=== PATIENT | male | born 1970 | race African-American/Black ===

== ENCOUNTER 2017-06-12 14:02 | Inpatient (IN) | payer OTHER ==
[2017-06-12 14:26] VITALS: BMI 24.4
--- NOTE | 2017-06-12 14:49 | PDOC ---
Attending Attestation - HPI HPI: 06/12/17 16:55 Pt is a 46 yo M with no PMHx who presents to the ED with chest pain and dark colored urine for the past 4 days. Patient reports R sided chest pain worse with expectoration associated with fever/chills (T max 101 at home), night sweats, decreased appetite and nausea. Patient reports productive cough (clear phlegm). Patient presents to the ED for further evaluation. Social Hx: Current everyday smoker PCP: None - Physicial Exam PE: 06/12/17 16:55 GENERAL: The patient is awake, alert, and fully oriented, Nontoxic - in no acute distress. HEAD: Normocephalic, atraumatic. EYES: Extraocular movements intact, sclera anicteric, conjunctiva clear. ENT: Normal voice, moist mucous membranes. NECK: Normal range of motion, supple without lymphadenopathy, JVD, or masses. LUNGS: Breath sounds equal, clear to auscultation bilaterally. No wheezes, no crackles, no rales. HEART: Regular rate and rhythm, normal S1 and S2 without murmur, rub or gallop. ABDOMEN: +RUQ discomfort. Soft, nontender, normoactive bowel sounds. No guarding , no rebound. No masses. EXTREMITIES: Normal range of motion, no edema. No clubbing or cyanosis. No cords , erythema, or tenderness. NEUROLOGICAL: Fully Oriented, Alert, Normal Mood/Affect, Motor Strength 5/5. No facial asymmetry, Normal speech. SKIN: Warm, Dry, normal turgor, no rashes or lesions noted. - Medical Decision Making 06/12/17 16:55 Documentation prepared by Mary Clarke, acting as emergency medicine medical director for Wendy Santos MD <Mary Clarke - Last Filed: 06/12/17 16:55> - Resident Resident Name: Benito Ortiz - Medical Decision Making 06/12/17 19:59 I, Dr. Wendy Santos, attest that the scribes documentation that appears above has been prepared under my direction and personally reviewed by me. I confirmed that the note above accurately reflects all work, treatment, procedures, and medical decision-making performed by me. 06/12/17 20:00 Pt's labs and xray reviewed and noted, PT with elevated wbc of 20,000 with no significant shift and cxr concerning for left hilar mass,ct of chest ordered to confirm mass noted on cxr. Ct read as 4 cm perihilar upper lobe mass contiguous with left hilum highly suspicious for malignancy. Pt was informed of ct results and current plan is to admit to hospital for further evaluation and work up of lung mass. <Wendy Santos - Last Filed: 06/12/17 20:03>
[2017-06-12] MEDS ORDERED: SODIUM CHLORIDE 0.9% 1000 ML INFUS.BAG IV STA (14:50)
[2017-06-12 15:10] LABS: MEAN CELL VOLUME 85.1 fl (80-96)
[2017-06-12 15:13] LABS: HEMATOCRIT 36.6 % (35.4-49); HEMOGLOBIN 12.4 GM/dL (11.7-16.9); MEAN PLT VOLUME 8.9 fl (7.5-11.1); PLATELET COUNT 309 K/MM3 (134-434); RBC 4.29 M/mm3 (4.00-5.60); RDW 13.8 % (11.9-15.9); WHITE BLOOD COUNT 20.6 K/mm3 (4.0-10.0)
--- NOTE | 2017-06-12 15:13 | PDOC ---
History of Present Illness - General Chief Complaint: Chest Pain Stated Complaint: CHEST PAIN Time Seen by Provider: 06/12/17 14:39 History Source: Patient Exam Limitations: No Limitations - History of Present Illness Initial Comments: 06/12/17 14:53 Patient is a 46M with no significant medical history here today complaining of chest pain, cough, rigors and chills. The cough started two weeks ago. The chest pain started 3-4 days ago after multiple episodes of coughing and is worse with palpation. Patient describes chills 2 nights ago that were bad enough to cause him to shake uncontrollably. Patient states that he's finally coming in today because his urine turned dark orange. Patient is an active smoker, denies alcohol and other illicits. His father had "heart surgery" at 47. Denies sick contacts, did not get flu shot this year. Past History - Past Medical History Allergies/Adverse Reactions: Allergies Allergy/AdvReac Type Severity Reaction Status Date / Time pistachio nut Allergy Verified 06/12/17 14:26 Home Medications: Ambulatory Orders NK [No Known Home Medication] 06/12/17 - Suicide/Smoking/Psychosocial Hx Smoking History: Current every day smoker Have you smoked in the past 12 months: Yes Number of Cigarettes Smoked Daily: 10 Information on smoking cessation initiated: No Hx Alcohol Use: No Drug/Substance Use Hx: No Review of Systems - Review of Systems Comments:: 06/12/17 15:13 GENERAL/CONSTITUTIONAL: No fever or chills. No weakness. HEAD, EYES, EARS, NOSE AND THROAT: No change in vision. No sore throat. CARDIOVASCULAR: Positive for chest pain and shortness of breath RESPIRATORY: Positive for cough. Negative for hemoptysis. GASTROINTESTINAL: No nausea, vomiting, diarrhea or constipation. GENITOURINARY: No dysuria, frequency, or change in urination. MUSCULOSKELETAL: Positive for right sided muscle pains. No neck or back pain. SKIN: No rash NEUROLOGIC: No headache, vertigo, loss of consciousness, or change in strength/ sensation. HEMATOLOGIC/LYMPHATIC: No anemia, easy bleeding, or history of blood clots. ALLERGIC/IMMUNOLOGIC: No hives or skin allergy. *Physical Exam - Vital Signs Last Vital Signs Temp Pulse Resp BP Pulse Ox 99.0 F 108 H 16 126/84 99 06/12/17 14:23 06/12/17 14:23 06/12/17 14:23 06/12/17 14:23 06/12/17 14:23 - Physical Exam Comments: 06/12/17 15:14 GENERAL: Awake, alert, and fully oriented, warm to touch on abdomen, cold extremities HEAD: No signs of trauma, normocephalic, atraumatic EYES: PERRLA, EOMI, sclera anicteric, conjunctiva clear ENT: Auricles normal inspection, hearing grossly normal, nares patent, oropharynx clear without exudates. Dry mucosa NECK: Normal ROM, supple, no lymphadenopathy, JVD, or masses LUNGS: No distress, speaks full sentences, decreased breath sounds on right side HEART: Tachycardic, normal S1 and S2, no murmurs, rubs or gallops, peripheral pulses normal and equal bilaterally. ABDOMEN: Soft, nontender, normoactive bowel sounds. No guarding, no rebound. No masses EXTREMITIES: Normal inspection, Normal range of motion, no edema. No clubbing or cyanosis. NEUROLOGICAL: Cranial nerves II through XII grossly intact. Normal speech, no focal sensorimotor deficits SKIN: Warm, Dry, normal turgor, no rashes or lesions noted. ED Treatment Course - LABORATORY CBC & Chemistry Diagram: 06/12/17 15:00 06/12/17 15:00 - RADIOLOGY Radiology Studies Ordered: Category Date Time Status CHEST X-RAY PORTABLE* [RAD] Stat Radiology 06/12/17 14:50 Ordered Medical Decision Making - Medical Decision Making 06/12/17 15:17 Patient is 46M with no significant medical history here today complaining of cough, rigors, chest pain, dark urine. Vital signs notable for tachycardia. Patient warm to touch in abdomen, will get rectal temp. Believe patient may be septic. Will treat with fluids and tylenol. Will evaluate with septic work up. 06/12/17 17:15 Laboratory Tests 06/12/17 06/12/17 06/12/17 15:00 15:00 15:00 WBC 20.6 H Hgb 12.4 Hct 36.6 Plt Count 309 Neutrophils % (Manual) 74.7 INR 1.28 H Sodium 135 L Potassium 3.2 L Troponin I < 0.02 Urine Nitrite Ur Leukocyte Esterase Urine WBC (Auto) 06/12/17 15:43 WBC Hgb Hct Plt Count Neutrophils % (Manual) INR Sodium Potassium Troponin I Urine Nitrite Negative Ur Leukocyte Esterase Negative Urine WBC (Auto) 5 CBC shows leukocytosis with neutrophillic shift. INR slightly elevated. CMP shows mild hypokalemia. Troponin undetectqable. UA not positive for UTI. CXR concerning for pneumonia vs mass. 06/12/17 17:34 Flu negative. 06/12/17 18:37 EKG shows sinus tachycardia with rate of 103bpm. Right axis with LVH. Biphasic t waves in V3-V6. No st elevations/depressions. Normal QRS/DC/QTc intervals. 06/12/17 19:22 CT shows probable malignancy with surrounding pneumonitis. Will cover with ceftriaxone. Signed out to Dr Khalil. *DC/Admit/Observation/Transfer Diagnosis at time of Disposition: Lung cancer - Discharge Dispostion Condition at time of disposition: Stable - Referrals - Patient Instructions - Post Discharge Activity
[2017-06-12] MEDS ORDERED: ACETAMINOPHEN 1000 MG/100 ML VIAL (NON FORMULARY) IVPB ONE (15:19)
[2017-06-12] MEDS ORDERED: ACETAMINOPHEN INJECTION 100 ML IVPB ONE (15:50)
[2017-06-12 15:51] LABS: PLATELET ESTIMATE NORMAL
[2017-06-12 15:58] LABS: INR 1.28 (0.82-1.09); PROTHROMBIN TIME (PATIENT) 14.5 SEC (9.98-11.88)
[2017-06-12 16:01] LABS: ACTIVATED PTT 31.7 SECONDS (26.9-34.4); ALBUMIN 2.5 g/dl (3.4-5.0); ANION GAP 12 (8-16); BILIRUBIN,TOTAL 0.7 mg/dL (0.2-1.0); BLOOD UREA NITROGEN 12 mg/dL (7-18); CALCIUM 8.3 mg/dL (8.5-10.1); CHLORIDE 93 mmol/L (98-107); CO2 30 mmol/L (21-32); CREATININE 0.9 mg/dL (0.7-1.3); GLUCOSE,RANDOM 95 mg/dL (74-106); POTASSIUM 3.2 mmol/L (3.5-5.1); SGOT/AST 49 U/L (15-37); SODIUM 135 mmol/L (136-145); TOT PROT 6.6 g/dl (6.4-8.2)
[2017-06-12 16:10] LABS: ALK PHOS 176 U/L (45-117); SGPT/ALT 30 U/L (12-78)
[2017-06-12 16:11] LABS: URINE APPEARANCE CLEAR; URINE BLOOD NEGATIVE (NEGATIVE); URINE COLOR AMBER; URINE GLUCOSE (UA) NEGATIVE (NEGATIVE); URINE KETONE NEGATIVE (NEGATIVE); URINE LEUK ESTERASE NEGATIVE (NEGATIVE); URINE NITRITE NEGATIVE (NEGATIVE); URINE UROBILINOGEN 4.0 E.U/dl mg/dL (0.2-1.0)
[2017-06-12 16:12] LABS: URINE PROTEIN 1+ (NEGATIVE)
[2017-06-12 16:20] LABS: EPI CELLS RARE /HPF (FEW); URINE MUCUS RARE
[2017-06-12] MEDS ORDERED: POTASSIUM CHLORIDE ORAL LIQUID 20 MEQ/15 ML PO ONE (16:21)
[2017-06-12] MEDS ORDERED: POTASSIUM CHLORIDE ORAL LIQUID 20 MEQ/15 ML ONE (16:44)
[2017-06-12] MEDS ORDERED: CEFTRIAXONE 1 GM in DEXTROSE 5%-WATER - 50 ML IVPB ONE (19:24)
[2017-06-12] MEDS ORDERED: AZITHROMYCIN IVPB 500 MG in DEXTROSE 5%-WATER - 250 ML IVPB ONE (19:24)
[2017-06-12] MEDS ORDERED: CEFTRIAXONE 1 GM/50 ML BAG ONE (19:29)
[2017-06-12] MEDS ORDERED: AZITHROMYCIN IVPB 250 ML IVPB ONE (19:29)
[2017-06-13] MEDS ORDERED: ALBUTEROL SO4 0.083% IH SOL 2.5 MG/3 ML VIAL.NEB. NEB PRN (01:15)
--- NOTE | 2017-06-13 01:22 | PN ---
Teaching Attending Note Name of Resident: Stacia Bray ATTENDING PHYSICIAN STATEMENT I saw and evaluated the patient. I reviewed the resident's note and discussed the case with the resident. I agree with the resident's findings and plan as documented. SUBJECTIVE: This is a 46 year old man with no significant medical history who comes to the ED with right sided chest pain radiating to his back. He has had a dry cough for about 4 weeks. He thought he had a cold and took OTC cold medications without relief. He developed pain about 2 weeks ago. He has had nausea, loss of appetite, chills, and night sweats. He noted his urine has been dark x 2 days. His stools have been smaller than usual which he attributes to eating less. 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 He denies weight loss , abdominal pain, SOB, hemoptysis, jaundice. OBJECTIVE: Vital Signs Period Temp Pulse Resp BP Sys/Victoria Pulse Ox Last 24 Hr 98.8 F-99.0 F 104-108 16-16 126-132/84-86 97-99 HEART: S1S2, RRR LUNGS: Clear ABDOMEN: Soft, non-tender, non-distended, normal BS EXTREMITIES: No edema Laboratory Tests 06/12/17 06/12/17 06/12/17 15:00 15:00 15:00 WBC 20.6 H RBC 4.29 Hgb 12.4 Hct 36.6 MCV 85.1 MCH 29.0 MCHC 34.0 RDW 13.8 Plt Count 309 MPV 8.9 Neutrophils % No Result Required. Neutrophils % (Manual) 74.7 Band Neutrophils % 0.0 Lymphocytes % No Result Required. Lymphocytes % (Manual) 10.1 Monocytes % (Manual) 7 Eosinophils % (Manual) 0.0 Basophils % (Manual) 2.0 Myelocytes % (Man) 0 Promyelocytes % (Man) 0 Blast Cells % (Manual) 0 Nucleated RBC % 0 Metamyelocytes 0 Platelet Estimate Normal PT with INR 14.50 H INR 1.28 H PTT (Actin FS) 31.7 VBG pH Cancelled POC VBG pCO2 Cancelled POC VBG pO2 Cancelled Mixed VBG HCO3 Cancelled Sodium Potassium Chloride Carbon Dioxide Anion Gap BUN Creatinine Creat Clearance w eGFR Random Glucose Lactic Acid Calcium Total Bilirubin AST ALT Alkaline Phosphatase Troponin I Total Protein Albumin Urine Color Urine Appearance Urine pH Ur Specific [place] Urine Protein Urine Glucose (UA) Urine Ketones Urine Blood Urine Nitrite Urine Bilirubin Urine Urobilinogen Ur Leukocyte Esterase Urine WBC (Auto) Urine RBC (Auto) Ur Epithelial Cells Urine Mucus 06/12/17 06/12/17 06/12/17 15:00 15:00 15:43 WBC RBC Hgb Hct MCV MCH MCHC RDW Plt Count MPV Neutrophils % Neutrophils % (Manual) Band Neutrophils % Lymphocytes % Lymphocytes % (Manual) Monocytes % (Manual) Eosinophils % (Manual) Basophils % (Manual) Myelocytes % (Man) Promyelocytes % (Man) Blast Cells % (Manual) Nucleated RBC % Metamyelocytes Platelet Estimate PT with INR INR PTT (Actin FS) VBG pH POC VBG pCO2 POC VBG pO2 Mixed VBG HCO3 Sodium 135 L Potassium 3.2 L Chloride 93 L Carbon Dioxide 30 Anion Gap 12 BUN 12 Creatinine 0.9 Creat Clearance w eGFR > 60 Random Glucose 95 Lactic Acid 1.0 Calcium 8.3 L Total Bilirubin 0.7 AST 49 H ALT 30 Alkaline Phosphatase 176 H Troponin I < 0.02 Total Protein 6.6 Albumin 2.5 L Urine Color Kalani Urine Appearance Clear Urine pH 5.0 Ur Specific [place] 1.023 Urine Protein 1+ H Urine Glucose (UA) Negative Urine Ketones Negative Urine Blood Negative Urine Nitrite Negative Urine Bilirubin 2.0 Urine Urobilinogen 4.0 e.u/dl Ur Leukocyte Esterase Negative Urine WBC (Auto) 5 Urine RBC (Auto) 6 Ur Epithelial Cells Rare Urine Mucus Rare Home Medications Medication Instructions Recorded NK [No Known Home Medication] 06/12/17 ASSESSMENT AND PLAN: This is a 46 year old man with no significant medical history who presented to the ED with right sided chest pain radiating to his back. He was found to have WBC 20.6 and lung/liver/adrenal masses on CT. 1. Sepsis secondary to post-obstructive pneumonia - Start Unasyn 2. RO/hilar mass, LLL spiculated nodule, liver masses, right adrenal mass suspicious for metastatic cancer - IR for biopsy - Pulmonary consult 3. Hypoalbuminemia 4. Hyponatremia, mild - Possibly secondary to SIADH 5. Hypokalemia - Replete potassium
[2017-06-13] MEDS ORDERED: ONDANSETRON 4 MG/2 ML VIAL IVPUSH PRN (01:32)
--- NOTE | 2017-06-13 01:43 | HP ---
CHIEF COMPLAINT: chest pain PCP: HISTORY OF PRESENT ILLNESS: This is a 46 year old male with no known medical history, presents to the emergency room with sharp, intermittent, right shoulder/anterior chest pain that radiates to the back, for the past two weeks. Pain with palpation. No change with rest or exertion. NO jaw/numbness/tingling. Aleve and heating pad alleviate pain. Denies palpitations, shortness of breath, leg swelling. He also noticed his urine being "very dark", no hematuria, dysuria, flank pain, fever. He has been somewhat nauseous, poor appetite, with dry cough, and intermittent night sweats. With these additional symptoms, and the chest pain he decided to come to hospital to get evaluated. Patient denies FERRERA, blurry vision, abdominal pain, sputum production, hemoptysis, melena, node tenderness, recent travel, sick contacts. ER course was notable for: tachycardic; mild feverl leukocytosis. Chest CT showed obstructive pneumonia with lung mass. 4 cm perihilar RO mass cont with left hilum, suspicious for malignancy. 1.3 CM non calcified spiculated LL nodule susp. for malignancy. Extra hepatic metastisis. 4cm mass rigth adrenal. Recent Travel: no PAST MEDICAL HISTORY: nk PAST SURGICAL HISTORY: nk Social History: Had and 5mo daughter; father passed; brother of cancer a young age (unknown Ca); mother alive; family hc unknown; works as in construction; Smokin ppd since Alcohol:no Drugs: no Family History: Allergies pistachio nut Allergy (Verified 06/12/17 14:26) HOME MEDICATIONS: Home Medications Medication Instructions Recorded NK [No Known Home Medication] 06/12/17 REVIEW OF SYSTEMS as above PHYSICAL EXAMINATION Vital Signs - 24 hr 06/12/17 06/12/17 06/13/17 14:23 15:44 00:02 Temperature 99.0 F 98.8 F Pulse Rate 108 H Pulse Rate [ 104 H Left] Respiratory 16 16 Rate Blood Pressure 126/84 Blood Pressure 132/86 [Left Arm] O2 Sat by Pulse 99 97 98 Oximetry (%) GENERAL: Awake, alert, and fully oriented, in no acute distress. HEAD: Normal with no signs of trauma. EYES: Pupils equal, round and reactive to light, extraocular movements intact, sclera anicteric, conjunctiva clear. No lid lag. EARS, NOSE, THROAT: Ears normal, nares patent, oropharynx clear without exudates. Moist mucous membranes. NECK: Normal range of motion, supple without lymphadenopathy, JVD, or masses. LUNGS: Breath sounds equal, clear to auscultation bilaterally. No wheezes, and no crackles. No accessory muscle use. HEART: tachy and reg rhythm, normal S1 and S2 without murmur, rub or gallop. ABDOMEN: Soft, nontender, not distended, normoactive bowel sounds, no guarding, no rebound, no masses. No hepatomegaly or splenomegaly. MUSCULOSKELETAL: Normal range of motion at all joints. No bony deformities or tenderness. No CVA tenderness. UPPER EXTREMITIES: 2+ pulses, warm, well-perfused. No cyanosis. No clubbing. No peripheral edema. LOWER EXTREMITIES: 2+ pulses, warm, well-perfused. No calf tenderness. No peripheral edema. NEUROLOGICAL: Cranial nerves II-XII intact. Normal speech. Normal gait. muscle strength 5/5 deltoid, triceps, biceps, hand oil developer, wrist/hip/knee/ankle flexion and extention bilaterally; sensation in tact throughout; reflexes 2+; brachioradials; knee; ankle; PSYCHIATRIC: Cooperative. Good eye contact. Appropriate mood and affect. SKIN: Warm, dry, normal turgor, no rashes or lesions noted, normal capillary refill. looks like had cysts on back mid upper right; clean no puss drian; Laboratory Results - last 24 hr 06/12/17 06/12/17 06/12/17 15:00 15:00 15:00 WBC 20.6 H RBC 4.29 Hgb 12.4 Hct 36.6 MCV 85.1 MCH 29.0 MCHC 34.0 RDW 13.8 Plt Count 309 MPV 8.9 Neutrophils % No Result Required. Neutrophils % (Manual) 74.7 Band Neutrophils % 0.0 Lymphocytes % No Result Required. Lymphocytes % (Manual) 10.1 Monocytes % (Manual) 7 Eosinophils % (Manual) 0.0 Basophils % (Manual) 2.0 Myelocytes % (Man) 0 Promyelocytes % (Man) 0 Blast Cells % (Manual) 0 Nucleated RBC % 0 Metamyelocytes 0 Platelet Estimate Normal PT with INR 14.50 H INR 1.28 H PTT (Actin FS) 31.7 VBG pH Cancelled POC VBG pCO2 Cancelled POC VBG pO2 Cancelled Mixed VBG HCO3 Cancelled Sodium Potassium Chloride Carbon Dioxide Anion Gap BUN Creatinine Creat Clearance w eGFR Random Glucose Lactic Acid Calcium Total Bilirubin AST ALT Alkaline Phosphatase Troponin I Total Protein Albumin Urine Color Urine Appearance Urine pH Ur Specific [place] Urine Protein Urine Glucose (UA) Urine Ketones Urine Blood Urine Nitrite Urine Bilirubin Urine Urobilinogen Ur Leukocyte Esterase Urine WBC (Auto) Urine RBC (Auto) Ur Epithelial Cells Urine Mucus 06/12/17 06/12/17 06/12/17 15:00 15:00 15:43 WBC RBC Hgb Hct MCV MCH MCHC RDW Plt Count MPV Neutrophils % Neutrophils % (Manual) Band Neutrophils % Lymphocytes % Lymphocytes % (Manual) Monocytes % (Manual) Eosinophils % (Manual) Basophils % (Manual) Myelocytes % (Man) Promyelocytes % (Man) Blast Cells % (Manual) Nucleated RBC % Metamyelocytes Platelet Estimate PT with INR INR PTT (Actin FS) VBG pH POC VBG pCO2 POC VBG pO2 Mixed VBG HCO3 Sodium 135 L Potassium 3.2 L Chloride 93 L Carbon Dioxide 30 Anion Gap 12 BUN 12 Creatinine 0.9 Creat Clearance w eGFR > 60 Random Glucose 95 Lactic Acid 1.0 Calcium 8.3 L Total Bilirubin 0.7 AST 49 H ALT 30 Alkaline Phosphatase 176 H Troponin I < 0.02 Total Protein 6.6 Albumin 2.5 L Urine Color Kalani Urine Appearance Clear Urine pH 5.0 Ur Specific [place] 1.023 Urine Protein 1+ H Urine Glucose (UA) Negative Urine Ketones Negative Urine Blood Negative Urine Nitrite Negative Urine Bilirubin 2.0 Urine Urobilinogen 4.0 e.u/dl Ur Leukocyte Esterase Negative Urine WBC (Auto) 5 Urine RBC (Auto) 6 Ur Epithelial Cells Rare Urine Mucus Rare Chest CT: showed obstructive pneumonia with lung mass. 4 cm perihilar RO mass cont with left hilum, suspicious for malignancy. 1.3 CM non calcified spiculated LL nodule susp. for malignancy. Extra hepatic metastisis. 4cm mass rigth adrenal. ASSESSMENT/PLAN: This is a 46 year old male with no known medical history who presented with chest pain, generalized symptoms; found to have lung mass with obstructive pna, with imaging that indicated liver mets. #sepsis secondary to obstructive pneumonia; -IV unasyn -blood cx -cxr -CT as above #new lung mass with liver mets: -bone scan -CT guided lung biopsy -IR -pulm appreciated -brobchodilator prn -pain control -spirometer #nausea; -zofran IV -IVF if cannot tolerate po #hypokalemia: -replaced in ER; trend FEN: Fluids; 125mls ND: monitor for fluid overload; if patient eating and drinking, can d/c fluids; breath sound clear for now Diet: regular VTE: scds; start hep after procedure GI: protonix Case discussed with Dr. Galen [id number] Visit type - Emergency Visit Emergency Visit: Yes ED Registration Date: 06/12/17 Care time: The patient presented to the Emergency Department on the above date and was hospitalized for further evaluation of their emergent condition. - New Patient This patient is new to me today: Yes Date on this admission: 06/13/17 - Critical Care Critical Care patient: No Hospitalist Screening - Colonoscopy Questionnaire Colonoscopy Questionnaire: Colonoscopy Questionnaire - Patient: 50 - 75 years old and never had a screening colonoscopy: No History of colon or rectal polyps, or CA: Unknown History of IBD, Crohn's disease or UC: Unknown History of abdominal radiation therapy as a child: Unknown - Relative: 1 with colon or rectal CA, or polyps at age 60 or younger: Unknown Colon or rectal CA diagnosed at age 45 or younger: Unknown Multiple relatives with colon or rectal CA: Unknown - Outcome: Screening Result: Negative Screen
[2017-06-13] MEDS ORDERED: HEPARIN NA (PORCINE) 5,000 UNITS/ML 1ML VIAL SQ SCH (02:00)
[2017-06-13] MEDS: SODIUM CHLORIDE 1,000 ML IV SCH (02:08)
[2017-06-13] MEDS: oxyCODONE HCL 5 MG TABLET PO PRN ×5 (02:14→21:18)
[2017-06-13] MEDS: AMPICILLIN NA/SULBACTAM NA 3 GM in SODIUM CHLORIDE 100 ML IVPB SCH ×4 (03:39→21:18)
[2017-06-13] MEDS ORDERED: PT OWN MED DRAWER 7, Y5N ONE ×2 (08:41→21:04)
[2017-06-13] MEDS ORDERED: PNEUMOCOCCAL 23 VACCINE 0.5 ML VIAL IM ONE (09:45)
[2017-06-13] MEDS ORDERED: FLU VACCINE QUAD 60 MCG/0.5 ML (MDV 17-18) IM ONE (10:00)
[2017-06-13] MEDS ORDERED: PNEUMOC 13-VAL CONJ-DIP CRM/PF 0.5 ML DISP.SYRIN IM ONE (10:00)
--- NOTE | 2017-06-13 11:58 | PN ---
Progress Note (short form) - Note Progress Note: Subjective: no fever or chills. No abd pain , has Right upper chest wall pain. no cough , has sweats and feels hot . no diarrhea , but had diarrhea x 2 twice yesterday denies FERRERA , visual changes , nubness , weakness or tingling . denies back pain. Objective: Vital Signs: Last Vital Signs Temp Pulse Resp BP Pulse Ox 98.9 F 77 20 126/90 98 06/13/17 06:00 06/13/17 06:00 06/13/17 06:00 06/13/17 06:00 06/13/17 02:26 Laboratory Results - last 24 hr 06/12/17 06/12/17 06/12/17 15:00 15:00 15:00 WBC 20.6 H RBC 4.29 Hgb 12.4 Hct 36.6 MCV 85.1 MCH 29.0 MCHC 34.0 RDW 13.8 Plt Count 309 MPV 8.9 Neutrophils % No Result Required. Neutrophils % (Manual) 74.7 Band Neutrophils % 0.0 Lymphocytes % No Result Required. Lymphocytes % (Manual) 10.1 Monocytes % (Manual) 7 Eosinophils % (Manual) 0.0 Basophils % (Manual) 2.0 Myelocytes % (Man) 0 Promyelocytes % (Man) 0 Blast Cells % (Manual) 0 Nucleated RBC % 0 Metamyelocytes 0 Platelet Estimate Normal PT with INR 14.50 H INR 1.28 H PTT (Actin FS) 31.7 VBG pH Cancelled POC VBG pCO2 Cancelled POC VBG pO2 Cancelled Mixed VBG HCO3 Cancelled Sodium Potassium Chloride Carbon Dioxide Anion Gap BUN Creatinine Creat Clearance w eGFR Random Glucose Lactic Acid Calcium Total Bilirubin AST ALT Alkaline Phosphatase Troponin I Total Protein Albumin Urine Color Urine Appearance Urine pH Ur Specific [place] Urine Protein Urine Glucose (UA) Urine Ketones Urine Blood Urine Nitrite Urine Bilirubin Urine Urobilinogen Ur Leukocyte Esterase Urine WBC (Auto) Urine RBC (Auto) Ur Epithelial Cells Urine Mucus 06/12/17 06/12/17 06/12/17 15:00 15:00 15:43 WBC RBC Hgb Hct MCV MCH MCHC RDW Plt Count MPV Neutrophils % Neutrophils % (Manual) Band Neutrophils % Lymphocytes % Lymphocytes % (Manual) Monocytes % (Manual) Eosinophils % (Manual) Basophils % (Manual) Myelocytes % (Man) Promyelocytes % (Man) Blast Cells % (Manual) Nucleated RBC % Metamyelocytes Platelet Estimate PT with INR INR PTT (Actin FS) VBG pH POC VBG pCO2 POC VBG pO2 Mixed VBG HCO3 Sodium 135 L Potassium 3.2 L Chloride 93 L Carbon Dioxide 30 Anion Gap 12 BUN 12 Creatinine 0.9 Creat Clearance w eGFR > 60 Random Glucose 95 Lactic Acid 1.0 Calcium 8.3 L Total Bilirubin 0.7 AST 49 H ALT 30 Alkaline Phosphatase 176 H Troponin I < 0.02 Total Protein 6.6 Albumin 2.5 L Urine Color Kalani Urine Appearance Clear Urine pH 5.0 Ur Specific [place] 1.023 Urine Protein 1+ H Urine Glucose (UA) Negative Urine Ketones Negative Urine Blood Negative Urine Nitrite Negative Urine Bilirubin 2.0 Urine Urobilinogen 4.0 e.u/dl Ur Leukocyte Esterase Negative Urine WBC (Auto) 5 Urine RBC (Auto) 6 Ur Epithelial Cells Rare Urine Mucus Rare Physical Exam: NAD CV: RRR Lungs: CTAB ABd: soft, ND, TTP in RUQ. liver is percussed 3 cm below the costal margin. Ext: no edema lymphatic: 1.5 cm node in R axilla ,. None in L axilla Neuro : EOMI, round equal pupils reactive to light , tongue at mid line, sensatio in face NL. strength 5/5 in upper and lower ext proximally and distally. sensatio to light touch NL. reflexes : Knee jerk 2+ b/l , biceps 1+ b/ l Imaging: CT image reviewed. report pending . US report reviewed. Assessment/Plan: Unfortunate 46 y/o man with h/o nicotine dependence who presented with fever and R chest pain and was found to have PNA and possible metastatic cancer 1- PNA : likely post obstructive . - cont unasyn - follow blood cx - follow WBC 2- possible metastatic cancer , with likely lung origin given his h/o smoking. - lung, liver, adrenal involvement. and R axillary lymph node. - will wait for official read and see if ther is any involvement of ribs in R sided chest. - get full CT abd for full staging. NO neuro sx and has nl neuro exam, no need for head imaging . NO back pain. - might need bone scan - will d/w IR tomorrow for best site for Bx - consult Onc. - pt is aware of possible diagnosis 3- hypokalemia , hyponatremia . repeat labs pending 4- nicotine dependence . Nicotine patch DVT PX with lovenox. hold in AM for possible bx Visit type - Emergency Visit Emergency Visit: Yes ED Registration Date: 06/12/17 Care time: The patient presented to the Emergency Department on the above date and was hospitalized for further evaluation of their emergent condition. - New Patient This patient is new to me today: Yes Date on this admission: 06/13/17 - Critical Care Critical Care patient: No
[2017-06-13] MEDS ORDERED: ENOXAPARIN NA (PORCINE) 40 MG/0.4 ML DISP.SYRIN SQ ONE (12:04)
[2017-06-13 12:13] LABS: BASO % 0.8 % (0-2.0); EOS % 0.5 % (0-4.5); HEMATOCRIT 37.3 % (35.4-49); HEMOGLOBIN 12.6 GM/dL (11.7-16.9); LYMPH % 9.9 % (8-40); MCH 28.8 pg (25.7-33.7); MCHC 33.7 g/dl (32.0-35.9); MEAN CELL VOLUME 85.4 fl (80-96); MEAN PLT VOLUME 8.7 fl (7.5-11.1); MONO % 10.8 % (3.8-10.2); PLATELET COUNT 327 K/MM3 (134-434); RBC 4.37 M/mm3 (4.00-5.60); RDW 13.8 % (11.9-15.9); WHITE BLOOD COUNT 18.3 K/mm3 (4.0-10.0)
[2017-06-13 12:32] LABS: ANION GAP 7 (8-16); BLOOD UREA NITROGEN 8 mg/dL (7-18); CALCIUM 7.9 mg/dL (8.5-10.1); CHLORIDE 96 mmol/L (98-107); CO2 33 mmol/L (21-32); GLUCOSE,RANDOM 100 mg/dL (74-106); POTASSIUM 3.5 mmol/L (3.5-5.1); SODIUM 136 mmol/L (136-145)
[2017-06-13 12:33] LABS: CREATININE 0.8 mg/dL (0.7-1.3)
[2017-06-13] MEDS: NICOTINE 21 MG/24 HOURS TOPICAL PATCH TD SCH (12:44)
--- NOTE | 2017-06-13 13:23 | CONSULT ---
Consult Consult Specialty:: Oncology - History of Present Illness History of Present Illness: 46 year old man with no significant medical history who presented to the ED with right sided chest pain radiating to his back. He was found to have lung/ liver/adrenal masses on CT. Smoker. no FH of Cancer. Oncology consulted for the above Pt seen and examined/per pts wish his Significant other is at bedside. - History Source History Provided By: Patient, Medical Record - Alcohol/Substance Use Hx Alcohol Use: No - Smoking History Smoking history: Current every day smoker Have you smoked in the past 12 months: Yes Aproximately how many cigarettes per day: 10 Home Medications - Allergies Allergies/Adverse Reactions: Allergies Allergy/AdvReac Type Severity Reaction Status Date / Time pistachio nut Allergy Verified 06/12/17 14:26 - Home Medications Home Medications: Ambulatory Orders NK [No Known Home Medication] 06/12/17 Family Disease History - Family Disease History Family History: Denies Review of Systems - Review of Systems Constitutional: reports: Fever, Loss of Appetite, Night Sweats. denies: Unintentional Wgt. Loss, Weakness Eyes: reports: Blind Spots. denies: Blurred Vision, Double Vision Neck: denies: Decreased ROM, Lumps, Pain on Movement Cardiovascular: denies: Chest Pain, Edema, Palpitations, Shortness of Breath Respiratory: denies: Cough, Exercise Intolerance Gastrointestinal: denies: Abdominal Pain, Bloating Genitourinary: denies: Burning, Discharge, Dysuria Musculoskeletal: denies: Back Pain Integumentary: denies: Blister, Bruising Neurological: reports: Tremors. denies: Change in LOC, Change in Speech, Confusion, Dizziness, Incoordination, Numbness, Parasthesia, Pre-Existing Deficit Endocrine: denies: Excessive Sweating Hematology/Lymphatic: denies: Easily Bruised, Excessive Bleeding, Swollen Glands Physical Exam Vital Signs: Vital Signs Temperature 98.9 F 06/13/17 06:00 Pulse Rate 77 06/13/17 06:00 Respiratory Rate 20 06/13/17 06:00 Blood Pressure 126/90 06/13/17 06:00 O2 Sat by Pulse Oximetry (%) 98 06/13/17 02:26 Constitutional: Yes: Well Nourished, No Distress, Calm Eyes: Yes: Conjunctiva Clear HENT: Yes: Atraumatic, Normocephalic Neck: Yes: Supple, Trachea Midline Cardiovascular: Yes: Regular Rate and Rhythm, Bradycardia, Tachycardia Respiratory: Yes: Regular, CTA Bilaterally. No: Accessory Muscle Use Gastrointestinal: Yes: Normal Bowel Sounds, Soft. No: Palpable Mass, Tenderness , Tenderness, Epigastrium Musculoskeletal: No: Back Pain, Joint Stiffness, Joint Swelling Extremities: Yes: WNL Edema: No Integumentary: Yes: WNL Neurological: Yes: WNL, Alert, Oriented Psychiatric: Yes: Alert, Oriented Labs: CBC, BMP 06/13/17 12:00 06/13/17 12:00 Imaging - Results X-ray: Report Reviewed Cat Scan: Report Reviewed, Image Reviewed Ultrasound: Report Reviewed Assessment/Plan Highly suspicious for Metastatic Malignancy ( Per CT findings ) For IR Guided biopsy ?liver. Will need to discuss with IR ?lung primary MRI brain to complete staging CT a/p with/without contrast Further recs pending pathological diagnosis
--- NOTE | 2017-06-13 21:38 | EKG ---
Test Reason : Blood Pressure : / mmHG Vent. Rate : 103 BPM Atrial Rate : 103 BPM P-R Int : 132 ms QRS Dur : 084 ms QT Int : 354 ms P-R-T Axes : 072 103 049 degrees QTc Int : 463 ms SINUS TACHYCARDIA POSSIBLE LEFT ATRIAL ENLARGEMENT RIGHTWARD AXIS LEFT VENTRICULAR HYPERTROPHY NONSPECIFIC T WAVE ABNORMALITY ABNORMAL ECG NO PREVIOUS ECGS AVAILABLE Confirmed by ANGELES MUNOZ MD ([id number]) on 06/13/2017 9:37:37 PM Referred By: PAC Confirmed By:ANGELES MUNOZ MD
[2017-06-14] MEDS ORDERED: PT OWN MED DRAWER 7, Y5N ONE ×5 (01:22→20:20)
[2017-06-14] MEDS: SODIUM CHLORIDE 1,000 ML IV SCH (01:54)
[2017-06-14] MEDS: AMPICILLIN NA/SULBACTAM NA 3 GM in SODIUM CHLORIDE 100 ML IVPB SCH ×4 (01:59→23:13)
[2017-06-14] MEDS: oxyCODONE HCL 5 MG TABLET PO PRN ×6 (02:04→23:16)
[2017-06-14 06:32] LABS: BASO % 0.5 % (0-2.0); EOS % 1.6 % (0-4.5); HEMATOCRIT 36.1 % (35.4-49); HEMOGLOBIN 12.3 GM/dL (11.7-16.9); LYMPH % 12.1 % (8-40); MCH 29.2 pg (25.7-33.7); MEAN CELL VOLUME 85.8 fl (80-96); MEAN PLT VOLUME 9.3 fl (7.5-11.1); MONO % 13.7 % (3.8-10.2); NEUT % 72.1 % (42.8-82.8); PLATELET COUNT 297 K/MM3 (134-434); RBC 4.21 M/mm3 (4.00-5.60); WHITE BLOOD COUNT 17.8 K/mm3 (4.0-10.0)
[2017-06-14 06:57] LABS: ALBUMIN 1.9 g/dl (3.4-5.0); ALK PHOS 151 U/L (45-117); ANION GAP 11 (8-16); BILIRUBIN,TOTAL 0.6 mg/dL (0.2-1.0); BLOOD UREA NITROGEN 8 mg/dL (7-18); CALCIUM 7.9 mg/dL (8.5-10.1); CHLORIDE 97 mmol/L (98-107); CO2 30 mmol/L (21-32); CREATININE 0.8 mg/dL (0.7-1.3); GLUCOSE,RANDOM 97 mg/dL (74-106); MAGNESIUM 2.4 mg/dL (1.8-2.4); PHOSPHOROUS 3.3 mg/dL (2.5-4.9); POTASSIUM 3.6 mmol/L (3.5-5.1); SGOT/AST 44 U/L (15-37); SGPT/ALT 32 U/L (12-78); SODIUM 138 mmol/L (136-145); TOT PROT 5.6 g/dl (6.4-8.2)
[2017-06-14] MEDS: NICOTINE 21 MG/24 HOURS TOPICAL PATCH TD SCH (09:52)
[2017-06-14] MEDS ORDERED: FLU VACCINE QUAD 60 MCG/0.5 ML (MDV 17-18) IM ONE (10:00)
[2017-06-14] MEDS ORDERED: PNEUMOCOCCAL 23 VACCINE 0.5 ML VIAL IM ONE (10:00)
--- NOTE | 2017-06-14 10:04 | PN ---
Physical Exam: SERVICE: Hematology and Oncology SUBJECTIVE: Patient reported appetite, constipation and urination are improving. R flank pain sometimes unrelated to position or pressure, seems to come from "inside". Hacking cough without sputum production at times. Denies fever, chills, hemoptysis, malaise, night sweet, chest pain, shortness of breath. OBJECTIVE: Vital Signs Period Temp Pulse Resp BP Sys/Victoria Pulse Ox Last 24 Hr 98.0 F-98.8 F 72-115 16-18 126-146/72-104 98-99 GENERAL: AAO x 3, no in cardiopulmonary distress HEAD: AT, NC EYES: PERRA, sclera anicteric, conjunctiva clear ENT: oropharynx clear without exudates, moist mucous membranes. NECK: No bruits or lymphedopathy LUNGS: LLL rhonchi HEART: RRR, S1, S2 without murmur, rub or gallop. ABDOMEN: Soft, nontender, nondistended, normoactive bowel sounds, no guarding, no rebound, no hepatosplenomegaly, no masses. EXTREMITIES: 2+ pulses, warm, no edema. NEUROLOGICAL: Cranial nerves II through XII grossly intact CBCD WBC 17.8 K/mm3 (4.0-10.0) H 06/14/17 06:05 RBC 4.21 M/mm3 (4.00-5.60) 06/14/17 06:05 Hgb 12.3 GM/dL (11.7-16.9) 06/14/17 06:05 Hct 36.1 % (35.4-49) 06/14/17 06:05 MCV 85.8 fl (80-96) 06/14/17 06:05 MCHC 34.0 g/dl (32.0-35.9) 06/14/17 06:05 RDW 14.0 % (11.9-15.9) 06/14/17 06:05 Plt Count 297 K/MM3 (134-434) 06/14/17 06:05 MPV 9.3 fl (7.5-11.1) 06/14/17 06:05 CMP Sodium 138 mmol/L (136-145) 06/14/17 06:05 Potassium 3.6 mmol/L (3.5-5.1) 06/14/17 06:05 Chloride 97 mmol/L (98-107) L 06/14/17 06:05 Carbon Dioxide 30 mmol/L (21-32) 06/14/17 06:05 Anion Gap 11 (8-16) 06/14/17 06:05 BUN 8 mg/dL (7-18) 06/14/17 06:05 Creatinine 0.8 mg/dL (0.7-1.3) 06/14/17 06:05 Creat Clearance w eGFR > 60 (>60) 06/14/17 06:05 Calcium 7.9 mg/dL (8.5-10.1) L 06/14/17 06:05 Total Bilirubin 0.6 mg/dL (0.2-1.0) 06/14/17 06:05 AST 44 U/L (15-37) H 06/14/17 06:05 ALT 32 U/L (12-78) 06/14/17 06:05 Alkaline Phosphatase 151 U/L (45-117) H 06/14/17 06:05 Total Protein 5.6 g/dl (6.4-8.2) L 06/14/17 06:05 Albumin 1.9 g/dl (3.4-5.0) L D 06/14/17 06:[address] with contrast on 06/12: L perihilar mass and 1.2 spiculated nodule in LLL; 4.0 cm R adrenal mass; hepatic metases X-ray on 06/12: L hilar mass ASSESSMENT 46 yo AA current daily smoker without other significant medical or family history admitted to the hospital for post-obstructive pneumonia and later found to have extensive metases to liver and adrenals. PLAN Metastatic cancer - Likely lung being primary: Accurate staging is of the essence for appropriate therapy which includes CT abdomen/pelvis, MRI of brain, lung tissue biopsy and bone scan. Leukocytosis - 2/2 obstructive PNA: Improving on unasyn day 2, incentive spirometer Wade Taveras PGY2 Pager: [phone] Visit type - Emergency Visit Emergency Visit: No - New Patient This patient is new to me today: Yes Date on this admission: 06/14/17 - Critical Care Critical Care patient: No - Discharge Referral Referred to [facility] Med P.C.: No
--- NOTE | 2017-06-14 14:51 | PN ---
Teaching Attending Note Name of Resident: Humberto Valle ATTENDING PHYSICIAN STATEMENT I saw and evaluated the patient. I reviewed the resident's note and discussed the case with the resident. I agree with the resident's findings and plan as documented. SUBJECTIVE: No fever or chills . has nO abd pain. R sided chest is pleuritic in nature when he coughs or tkes deep breath OBJECTIVE: NAD CV: RRR Lungs: CTAB ABd: soft, ND, NT. liver is percussed 3 cm below the costal margin. Ext: no edema lymphatic: 1.5 cm node in R axilla ,. None in L axilla .2 lymph nodes in R groin and 3 in L groin ( 1-2 cm) . all lymph nodes are non tender , soft, and mobile under skin and on deep structure. Assessment/Plan: Unfortunate 46 y/o man with h/o nicotine dependence who presented with fever and R chest pain and was found to have PNA and possible metastatic cancer 1- PNA : likely post obstructive . - cont unasyn day 2 - follow blood cx -leukocytosis improved 2- Possible metastatic cancer, with likely lung origin given his h/o smoking. other possibility is lymphoma with the LAP felt in R axilla and groins ( less likely ) - CT scan of Abd/Pelvis pending - MRI of brain pending - to d/w IR the best biopsy site - ? bone scan 3- Nicotine dependence . Nicotine patch DVT PX with lovenox.
--- NOTE | 2017-06-14 14:58 | PN ---
Physical Exam: SUBJECTIVE: Patient seen and examined No acute events overnight. Patient feels well this morning. Complains of mild cough and right chest pain. Denies fever, chills, shortness of breath. OBJECTIVE: Vital Signs Period Temp Pulse Resp BP Sys/Victoria Pulse Ox Last 24 Hr 98.0 F-98.6 F 72-116 18-18 126-156/72-104 98-99 GENERAL: NAD, Well appearing, well nourished HEENT: Normal with no signs of trauma, PEERL, EOMI, Sclera anicteric, conjunctiva clear, oropharynx clear without exudates, MMM, No LAD, Full ROM LUNGS: CTABL, No wheezes/crackles/accessory muscle use HEART: RRR, S1, S2, no audible murmurs +Right chest wall tenderness ABDOMEN: Soft, RUQ tenderness, +guarding, BS+, +mild hepatomegaly EXTREMITIES: 2+ pulses, warm, well-perfused, no edema. NEUROLOGICAL: Cranial nerves II through XII grossly intact. Normal speech, gait not observed. PSYCH: Normal mood, normal affect. SKIN: Warm, dry, normal turgor, no rashes or lesions noted, +Right axillary and b/l inguinal LAD Laboratory Results - last 24 hr 06/14/17 06/14/17 06/14/17 06:05 06:05 06:05 WBC 17.8 H RBC 4.21 Hgb 12.3 Hct 36.1 MCV 85.8 MCH 29.2 MCHC 34.0 RDW 14.0 Plt Count 297 MPV 9.3 Neutrophils % 72.1 Lymphocytes % 12.1 D Monocytes % 13.7 H Eosinophils % 1.6 D Basophils % 0.5 PTT (Actin FS) 29.8 Sodium 138 Potassium 3.6 Chloride 97 L Carbon Dioxide 30 Anion Gap 11 BUN 8 Creatinine 0.8 Creat Clearance w eGFR > 60 Random Glucose 97 Calcium 7.9 L Phosphorus 3.3 Magnesium 2.4 Total Bilirubin 0.6 AST 44 H ALT 32 Alkaline Phosphatase 151 H Total Protein 5.6 L Albumin 1.9 L D Active Medications Generic Name Dose Route Start Last Admin Trade Name Freq PRN Reason Stop Dose Admin Albuterol Sulfate 1 amp 06/13/17 01:15 Ventolin 0.083% Nebulizer Soln - NEB Q6H PRN SHORT OF BREATH/WHEEZING Sodium Chloride 1,000 mls @ 100 mls/hr 06/13/17 01:15 06/14/17 01:54 Normal Saline - IV Not Given ASDIR TANNER Ampicillin Sodium/Sulbactam 100 mls @ 200 mls/hr 06/13/17 03:00 06/14/17 10: 19 Sodium 3 gm/ Sodium Chloride IVPB 200 mls/hr Q6H-IV TANNER Administration Nicotine 21 mg 06/13/17 12:15 06/14/17 09:52 Nicoderm Patch - TD 21 mg DAILY TANNER Administration Ondansetron HCl 4 mg 06/13/17 01:32 06/13/17 08:50 Zofran Injection IVPUSH 4 mg Q6H PRN Administration NAUSEA Oxycodone HCl 5 mg 06/13/17 12:04 06/14/17 14:48 Roxicodone - PO 5 mg Q4H PRN Administration PAIN LEVEL 6-10 ASSESSMENT/PLAN: 46 year old M with pmh of 32 pack yr history smoker presented with fever and chest pain found to have pneumonia and possible metastatic cancer. #Pneumonia, likely post obstructive -WBC trending down -Continue Unasyn 3g q6h -Blood Cx pending NGTD #Possible Metastatic cancer -multiorgan involvement -pending liver biopsy tomorrow, NPO after midnight, Lovenox held -CT abd pelvis pending, Brain MRI pending, and Bone scan pending -Oncology consulted, Dr Sifuentes -oxycodone 5 mg q4h prn for pain control #Smoking history -Nicotine patch #FEN/GI -NS @ 100 cc/hr -wnl -Regular diet, NPO after midnight #PPx -Lovenox, will hold for procedure tomorrow Visit type - Emergency Visit Emergency Visit: Yes ED Registration Date: 06/12/17 Care time: The patient presented to the Emergency Department on the above date and was hospitalized for further evaluation of their emergent condition. - New Patient This patient is new to me today: Yes Date on this admission: 06/14/17 - Critical Care Critical Care patient: No
--- NOTE | 2017-06-14 16:08 | CON.PULM ---
Consult Consult Specialty:: PULMONARY Referred by:: Dr. Queen Reason for Consultation:: lung mass - History of Present Illness Chief Complaint: chest pain History of Present Illness: 46yo male without significant past medical history who presents with right sided chest pain, RUQ discomfort x 2 weeks. No shortness of breath or wheezing but with a nonproductive cough. No fevers or chills but reports night sweats. Also reports decreased appetite and desire to eat. He is a long time smoker started at age 14. Also noticed that his urine was becoming darker. No family history of cancer. No history of asthma or COPD, no maintenance inhalers. - History Source History Provided By: Patient, Medical Record Limitations to Obtaining History: No Limitations - Alcohol/Substance Use Hx Alcohol Use: No - Smoking History Smoking history: Current every day smoker Have you smoked in the past 12 months: Yes Aproximately how many cigarettes per day: 10 Home Medications - Allergies Allergies/Adverse Reactions: Allergies Allergy/AdvReac Type Severity Reaction Status Date / Time pistachio nut Allergy Verified 06/12/17 14:26 - Home Medications Home Medications: Ambulatory Orders NK [No Known Home Medication] 06/12/17 Review of Systems - Review of Systems Constitutional: reports: Night Sweats, Weakness. denies: Chills, Fever Eyes: denies: Recent Change in Vision HENT: denies: Nasal Congestion, Throat Pain Neck: denies: Stiffness, Tenderness Cardiovascular: reports: Chest Pain. denies: Edema, Palpitations, Shortness of Breath Respiratory: reports: Cough. denies: Hemoptysis, Wheezing Gastrointestinal: denies: Abdominal Pain, Nausea, Vomiting Genitourinary: denies: Dysuria, Hematuria Neurological: denies: Dizziness, Headache Physical Exam Vital Sings: Vital Signs Temperature 98.6 F 06/14/17 14:47 Pulse Rate 116 H 06/14/17 14:47 Respiratory Rate 18 06/14/17 14:47 Blood Pressure 156/102 06/14/17 14:47 O2 Sat by Pulse Oximetry (%) 97 06/14/17 09:00 Constitutional: Yes: Calm Eyes: Yes: Conjunctiva Clear, EOM Intact HENT: Yes: Atraumatic, Normocephalic Neck: Yes: Supple, Trachea Midline Cardiovascular: Yes: Regular Rate and Rhythm Respiratory: Yes: Regular, CTA Bilaterally ...Clubbing: No Gastrointestinal: Yes: Normal Bowel Sounds, Soft, Tenderness (RUQ) Edema: No Neurological: Yes: Alert, Oriented Labs: CBC, BMP 06/14/17 06:05 06/14/17 06:05 Imaging - Results Chest X-ray: Report Reviewed, Image Reviewed Cat Scan: Report Reviewed, Image Reviewed (left sided hilar mass, liver lesions , adrenal mass, LLL nodule) Problem List - Problems (1) Lung mass Code(s): R91.8 - OTHER NONSPECIFIC ABNORMAL FINDING OF LUNG FIELD (2) Liver mass Code(s): R16.0 - HEPATOMEGALY, NOT ELSEWHERE CLASSIFIED (3) Lung nodule Code(s): R91.1 - SOLITARY PULMONARY NODULE (4) Adrenal mass Code(s): E27.9 - DISORDER OF ADRENAL GLAND, UNSPECIFIED Assessment/Plan Lung Mass Likely Metastatic Lung Cancer to Liver, Adrenal - agree with CT guided needle biopsy of liver to document metastatic disease - will need staging - oncology eval - DVT prophylaxis Thank you for this consult Erick Owens MD
[2017-06-15] MEDS: SODIUM CHLORIDE 1,000 ML IV SCH ×2 (01:47→17:21)
[2017-06-15] MEDS: AMPICILLIN NA/SULBACTAM NA 3 GM in SODIUM CHLORIDE 100 ML IVPB SCH ×4 (02:47→22:36)
[2017-06-15] MEDS: oxyCODONE HCL 5 MG TABLET PO PRN ×4 (06:22→23:33)
[2017-06-15 07:52] LABS: BASO % 0.2 % (0-2.0); HEMATOCRIT 38.2 % (35.4-49); HEMOGLOBIN 12.7 GM/dL (11.7-16.9); LYMPH % 7.6 % (8-40); MCH 28.3 pg (25.7-33.7); MCHC 33.1 g/dl (32.0-35.9); MEAN CELL VOLUME 85.4 fl (80-96); MEAN PLT VOLUME 9.1 fl (7.5-11.1); MONO % 9.7 % (3.8-10.2); NEUT % 81.5 % (42.8-82.8); PLATELET COUNT 315 K/MM3 (134-434); RBC 4.47 M/mm3 (4.00-5.60); WHITE BLOOD COUNT 21.3 K/mm3 (4.0-10.0)
[2017-06-15 08:04] LABS: CHLORIDE 96 mmol/L (98-107); POTASSIUM 3.5 mmol/L (3.5-5.1); SODIUM 139 mmol/L (136-145)
[2017-06-15 08:15] LABS: ALK PHOS 149 U/L (45-117); ANION GAP 13 (8-16); BILIRUBIN,TOTAL 0.6 mg/dL (0.2-1.0); BLOOD UREA NITROGEN 7 mg/dL (7-18); CALCIUM 7.9 mg/dL (8.5-10.1); CO2 30 mmol/L (21-32); CREATININE 0.7 mg/dL (0.7-1.3); GLUCOSE,RANDOM 93 mg/dL (74-106); SGOT/AST 48 U/L (15-37); SGPT/ALT 35 U/L (12-78); TOT PROT 5.8 g/dl (6.4-8.2)
[2017-06-15] MEDS ORDERED: PT OWN MED DRAWER 7, Y5N ONE ×2 (09:54→22:30)
[2017-06-15] MEDS ORDERED: ENOXAPARIN NA (PORCINE) 40 MG/0.4 ML DISP.SYRIN SQ SCH (10:00)
--- NOTE | 2017-06-15 10:54 | PN ---
Progress Note (short form) - Note Progress Note: Agitated as he is NPO as has not gone for his biopsy. He is on the schedule for IR guided liver mass biopsy. Intake & Output 06/12/17 06/13/17 06/14/17 06/15/17 23:59 23:59 23:59 23:59 Intake Total 3000 900 800 Balance 3000 900 800 Weight 185 lb 185 lb Last Vital Signs Temp Pulse Resp BP Pulse Ox 99.9 F H 93 H 18 146/103 98 06/15/17 09:00 06/15/17 09:00 06/15/17 09:00 06/15/17 09:00 06/15/17 09:00 Active Medications Albuterol Sulfate (Ventolin 0.083% Nebulizer Soln -) 1 amp NEB Q6H PRN PRN Reason: SHORT OF BREATH/WHEEZING Sodium Chloride (Normal Saline -) 1,000 mls @ 100 mls/hr IV ASDIR TANNER Last Admin: 06/15/17 01:47 Dose: 100 mls/hr Ampicillin Sodium/Sulbactam (Sodium 3 gm/ Sodium Chloride) 100 mls @ 200 mls/ hr IVPB Q6H-IV TANNER Last Admin: 06/15/17 02:47 Dose: 200 mls/hr Nicotine (Nicoderm Patch -) 21 mg TD DAILY TANNER Last Admin: 06/14/17 09:52 Dose: 21 mg Ondansetron HCl (Zofran Injection) 4 mg IVPUSH Q6H PRN PRN Reason: NAUSEA Last Admin: 06/13/17 08:50 Dose: 4 mg Oxycodone HCl (Roxicodone -) 5 mg PO Q4H PRN PRN Reason: PAIN LEVEL 6-10 Last Admin: 06/15/17 06:22 Dose: 5 mg Constitutional: Yes: Agitated Eyes: Yes: Conjunctiva Clear, EOM Intact HENT: Yes: Atraumatic, Normocephalic Neck: Yes: Supple, Trachea Midline Cardiovascular: Yes: Regular Rate and Rhythm Respiratory: Yes: Regular, CTA Bilaterally ...Clubbing: No Gastrointestinal: Yes: Normal Bowel Sounds, Soft Edema: No Neurological: Yes: Alert, Oriented Labs: Laboratory Results - last 24 hr 06/15/17 06/15/17 06:00 06:00 WBC 21.3 H RBC 4.47 Hgb 12.7 Hct 38.2 MCV 85.4 MCH 28.3 MCHC 33.1 RDW 14.0 Plt Count 315 MPV 9.1 Neutrophils % 81.5 Lymphocytes % 7.6 L D Monocytes % 9.7 Eosinophils % 1.0 Basophils % 0.2 Sodium 139 Potassium 3.5 Chloride 96 L Carbon Dioxide 30 Anion Gap 13 BUN 7 Creatinine 0.7 Creat Clearance w eGFR > 60 Random Glucose 93 Calcium 7.9 L Total Bilirubin 0.6 AST 48 H ALT 35 Alkaline Phosphatase 149 H Total Protein 5.8 L Albumin 2.0 L Problem List - Problems (1) Lung mass Code(s): R91.8 - OTHER NONSPECIFIC ABNORMAL FINDING OF LUNG FIELD (2) Liver mass Code(s): R16.0 - HEPATOMEGALY, NOT ELSEWHERE CLASSIFIED (3) Lung nodule Code(s): R91.1 - SOLITARY PULMONARY NODULE (4) Adrenal mass Code(s): E27.9 - DISORDER OF ADRENAL GLAND, UNSPECIFIED Assessment/Plan Lung Mass Likely Metastatic Lung Cancer to Liver, Adrenal - IR needle biopsy of liver to document metastatic disease - Staging in progress - VTE prophylaxis Dr Muller
--- NOTE | 2017-06-15 11:52 | PN ---
<IsraWade - Last Filed: 06/15/17 11:41> Physical Exam: SERVICE: Hematology and Oncology SUBJECTIVE: Patient mainly c/o scheduled procedures not being done and he's still NPO. No acute event overnight. Denies fever, chills, hemoptysis, malaise, night sweet, chest pain, shortness of breath. OBJECTIVE: Vital Signs Period Temp Pulse Resp BP Sys/Victoria Pulse Ox Last 24 Hr 97.5 F-99.9 F 81-116 18-18 132-156/87-103 97-98 GENERAL: AAO x 3, frustrated and agitated, no in cardiopulmonary distress HEAD: AT, NC EYES: PERRA, sclera anicteric, conjunctiva clear ENT: oropharynx clear without exudates, moist mucous membranes. NECK: No bruits or lymphedopathy LUNGS: CTAB HEART: RRR, S1, S2 without murmur, rub or gallop. ABDOMEN: Soft, nontender, nondistended, normoactive bowel sounds, no guarding, no rebound, no hepatosplenomegaly, no masses. EXTREMITIES: 2+ pulses, warm, no edema. NEUROLOGICAL: Cranial nerves II through XII grossly intact CBCD WBC 21.3 K/mm3 (4.0-10.0) H 06/15/17 06:00 RBC 4.47 M/mm3 (4.00-5.60) 06/15/17 06:00 Hgb 12.7 GM/dL (11.7-16.9) 06/15/17 06:00 Hct 38.2 % (35.4-49) 06/15/17 06:00 MCV 85.4 fl (80-96) 06/15/17 06:00 MCHC 33.1 g/dl (32.0-35.9) 06/15/17 06:00 RDW 14.0 % (11.9-15.9) 06/15/17 06:00 Plt Count 315 K/MM3 (134-434) 06/15/17 06:00 MPV 9.1 fl (7.5-11.1) 06/15/17 06:00 CMP Sodium 139 mmol/L (136-145) 06/15/17 06:00 Potassium 3.5 mmol/L (3.5-5.1) 03/27/18 06:00 Chloride 96 mmol/L (98-107) L 06/15/17 06:00 Carbon Dioxide 30 mmol/L (21-32) 06/15/17 06:00 Anion Gap 13 (8-16) 06/15/17 06:00 BUN 7 mg/dL (7-18) 06/15/17 06:00 Creatinine 0.7 mg/dL (0.7-1.3) 06/15/17 06:00 Creat Clearance w eGFR > 60 (>60) 06/15/17 06:00 Calcium 7.9 mg/dL (8.5-10.1) L 06/15/17 06:00 Total Bilirubin 0.6 mg/dL (0.2-1.0) 06/15/17 06:00 AST 48 U/L (15-37) H 06/15/17 06:00 ALT 35 U/L (12-78) 06/15/17 06:00 Alkaline Phosphatase 149 U/L (45-117) H 06/15/17 06:00 Total Protein 5.8 g/dl (6.4-8.2) L 06/15/17 06:00 Albumin 2.0 g/dl (3.4-5.0) L 06/15/17 06:00 Active Medications Generic Name Dose Route Start Last Admin Trade Name Freq PRN Reason Stop Dose Admin Albuterol Sulfate 1 amp 06/13/17 01:15 Ventolin 0.083% Nebulizer Soln - NEB Q6H PRN SHORT OF BREATH/WHEEZING Sodium Chloride 1,000 mls @ 100 mls/hr 06/13/17 01:15 06/15/17 01:47 Normal Saline - IV 100 mls/hr ASDIR TANNER Administration Ampicillin Sodium/Sulbactam 100 mls @ 200 mls/hr 06/13/17 03:00 06/15/17 02: 47 Sodium 3 gm/ Sodium Chloride IVPB 200 mls/hr Q6H-IV TANNER Administration Nicotine 21 mg 06/13/17 12:15 06/14/17 09:52 Nicoderm Patch - TD 21 mg DAILY TANNER Administration Ondansetron HCl 4 mg 06/13/17 01:32 06/13/17 08:50 Zofran Injection IVPUSH 4 mg Q6H PRN Administration NAUSEA Oxycodone HCl 5 mg 06/13/17 12:04 06/15/17 06:22 Roxicodone - PO 5 mg Q4H PRN Administration PAIN LEVEL 6-[address] with contrast on 06/12: L perihilar mass and 1.2 spiculated nodule in LLL; 4.0 cm R adrenal mass; hepatic metases X-ray on 06/12: L hilar mass ASSESSMENT 46 yo AA current daily smoker without other significant medical or family history admitted to the hospital for post-obstructive pneumonia and later found to have extensive metases to liver and adrenals. PLAN Metastatic cancer - Likely lung being primary: awaiting CT abdomen/pelvis, MRI of brain, lung/liver tissue biopsy and bone scan. Leukocytosis - 2/2 obstructive PNA: worse today with elevated temp, cont. abx and incentive spirometer [facility] PGY2 Pager: [phone] Visit type - Emergency Visit Emergency Visit: No - New Patient This patient is new to me today: No - Critical Care Critical Care patient: No - Discharge Referral Referred to [facility] Med P.C.: No <Stephie Sifuentes - Last Filed: 06/15/17 16:35> Physical Exam: SUBJECTIVE: Patient seen and examined with the resident OBJECTIVE: Vital Signs Period Temp Pulse Resp BP Sys/Victoria Pulse Ox Last 24 Hr 97.5 F-99.9 F 81-100 16-18 132-154/87-109 97-100 GENERAL: The patient is awake, alert, and fully oriented, in no acute distress. HEAD: Normal with no signs of trauma. EYES: PERRL, extraocular movements intact, sclera anicteric, conjunctiva clear. No ptosis. ENT: Ears normal, nares patent, oropharynx clear without exudates, moist mucous membranes. NECK: Trachea midline, full range of motion, supple. LUNGS: Breath sounds equal, clear to auscultation bilaterally, no wheezes, no crackles, no accessory muscle use. HEART: Regular rate and rhythm, S1, S2 without murmur, rub or gallop. ABDOMEN: Soft, nontender, nondistended, normoactive bowel sounds, no guarding, no rebound, no hepatosplenomegaly, no masses. EXTREMITIES: 2+ pulses, warm, well-perfused, no edema. NEUROLOGICAL: Cranial nerves II through XII grossly intact. Normal speech, gait not observed. PSYCH: Normal mood, normal affect. SKIN: Warm, dry, normal turgor, no rashes or lesions noted Laboratory Results - last 24 hr 06/15/17 06/15/17 06:00 06:00 WBC 21.3 H RBC 4.47 Hgb 12.7 Hct 38.2 MCV 85.4 MCH 28.3 MCHC 33.1 RDW 14.0 Plt Count 315 MPV 9.1 Neutrophils % 81.5 Lymphocytes % 7.6 L D Monocytes % 9.7 Eosinophils % 1.0 Basophils % 0.2 Sodium 139 Potassium 3.5 Chloride 96 L Carbon Dioxide 30 Anion Gap 13 BUN 7 Creatinine 0.7 Creat Clearance w eGFR > 60 Random Glucose 93 Calcium 7.9 L Total Bilirubin 0.6 AST 48 H ALT 35 Alkaline Phosphatase 149 H Total Protein 5.8 L Albumin 2.0 L Active Medications Generic Name Dose Route Start Last Admin Trade Name Freq PRN Reason Stop Dose Admin Albuterol Sulfate 1 amp 06/13/17 01:15 Ventolin 0.083% Nebulizer Soln - NEB Q6H PRN SHORT OF BREATH/WHEEZING Enoxaparin Sodium 40 mg 06/16/17 10:00 Lovenox - SQ DAILY TANNER Sodium Chloride 1,000 mls @ 100 mls/hr 06/13/17 01:15 06/15/17 01:47 Normal Saline - IV 100 mls/hr ASDIR TANNER Administration Ampicillin Sodium/Sulbactam 100 mls @ 200 mls/hr 06/13/17 03:00 06/15/17 13: 15 Sodium 3 gm/ Sodium Chloride IVPB 200 mls/hr Q6H-IV TANNER Administration Nicotine 21 mg 06/13/17 12:15 06/15/17 13:14 Nicoderm Patch - TD 21 mg DAILY TANNER Administration Ondansetron HCl 4 mg 06/13/17 01:32 06/13/17 08:50 Zofran Injection IVPUSH 4 mg Q6H PRN Administration NAUSEA Oxycodone HCl 5 mg 06/13/17 12:04 06/15/17 13:13 Roxicodone - PO 5 mg Q4H PRN Administration PAIN LEVEL 6-10 ASSESSMENT/PLAN: Await pathological diagnosis Await Staging. Disposition pending above
[2017-06-15] MEDS: NICOTINE 21 MG/24 HOURS TOPICAL PATCH TD SCH (13:14)
--- NOTE | 2017-06-15 13:56 | PN ---
Physical Exam: SUBJECTIVE: Patient seen and examined No acute events overnight. Patient feels well this morning. Chest pain has improved. Denies fever, chills, shortness of breath. OBJECTIVE: Vital Signs Period Temp Pulse Resp BP Sys/Victoria Pulse Ox Last 24 Hr 97.5 F-99.9 F 81-116 16-18 132-156/87-103 97-100 GENERAL: NAD, Well appearing, well nourished HEENT: Normal with no signs of trauma, PEERL, EOMI, Sclera anicteric, conjunctiva clear, oropharynx clear without exudates, MMM, No LAD, Full ROM LUNGS: CTABL, No wheezes/crackles/accessory muscle use HEART: RRR, S1, S2, no audible murmurs +Right chest wall tenderness ABDOMEN: Soft, RUQ tenderness, +guarding, BS+, +mild hepatomegaly EXTREMITIES: 2+ pulses, warm, well-perfused, no edema. NEUROLOGICAL: Cranial nerves II through XII grossly intact. Normal speech, gait not observed. PSYCH: Normal mood, normal affect. SKIN: Warm, dry, normal turgor, no rashes or lesions noted, +Right axillary and b/l inguinal LAD Laboratory Results - last 24 hr 06/15/17 06/15/17 06:00 06:00 WBC 21.3 H RBC 4.47 Hgb 12.7 Hct 38.2 MCV 85.4 MCH 28.3 MCHC 33.1 RDW 14.0 Plt Count 315 MPV 9.1 Neutrophils % 81.5 Lymphocytes % 7.6 L D Monocytes % 9.7 Eosinophils % 1.0 Basophils % 0.2 Sodium 139 Potassium 3.5 Chloride 96 L Carbon Dioxide 30 Anion Gap 13 BUN 7 Creatinine 0.7 Creat Clearance w eGFR > 60 Random Glucose 93 Calcium 7.9 L Total Bilirubin 0.6 AST 48 H ALT 35 Alkaline Phosphatase 149 H Total Protein 5.8 L Albumin 2.0 L Active Medications Generic Name Dose Route Start Last Admin Trade Name Freq PRN Reason Stop Dose Admin Albuterol Sulfate 1 amp 06/13/17 01:15 Ventolin 0.083% Nebulizer Soln - NEB Q6H PRN SHORT OF BREATH/WHEEZING Sodium Chloride 1,000 mls @ 100 mls/hr 06/13/17 01:15 06/15/17 01:47 Normal Saline - IV 100 mls/hr ASDIR TANNER Administration Ampicillin Sodium/Sulbactam 100 mls @ 200 mls/hr 06/13/17 03:00 06/15/17 13: 15 Sodium 3 gm/ Sodium Chloride IVPB 200 mls/hr Q6H-IV TANNER Administration Nicotine 21 mg 06/13/17 12:15 06/15/17 13:14 Nicoderm Patch - TD 21 mg DAILY TANNER Administration Ondansetron HCl 4 mg 06/13/17 01:32 06/13/17 08:50 Zofran Injection IVPUSH 4 mg Q6H PRN Administration NAUSEA Oxycodone HCl 5 mg 06/13/17 12:04 06/15/17 13:13 Roxicodone - PO 5 mg Q4H PRN Administration PAIN LEVEL 6-10 ASSESSMENT/PLAN: 46 year old M with pmh of 32 pack yr history smoker presented with fever and chest pain found to have pneumonia and possible metastatic cancer. #Pneumonia, likely post obstructive -Monitor wbc count, repeat cxr negative.. wbc may be 2/2 to possible cancer -Continue Unasyn 3g q6h -Blood Cx pending NGTD #Possible Metastatic cancer -Multiorgan involvement -Liver biopsy today -CT abd pelvis pending, Brain MRI pending, and Bone scan pending -Oncology consulted, Dr Sifuentes -Oxycodone 5 mg q4h prn for pain control #Smoking history -Nicotine patch #FEN/GI -NS @ 100 cc/hr -wnl -Regular diet #PPx -Lovenox restart tmrw Visit type - Emergency Visit Emergency Visit: Yes ED Registration Date: 06/12/17 Care time: The patient presented to the Emergency Department on the above date and was hospitalized for further evaluation of their emergent condition. - New Patient This patient is new to me today: No - Critical Care Critical Care patient: No
--- NOTE | 2017-06-15 18:21 | PN ---
Teaching Attending Note Name of Resident: Humberto Valle ATTENDING PHYSICIAN STATEMENT I saw and evaluated the patient. I reviewed the resident's note and discussed the case with the resident. I agree with the resident's findings and plan as documented. SUBJECTIVE:seen before the liver bx No fever or chills. has RUQ discomfort . no SOB OBJECTIVE: NAD CV: RRR Lungs: CTAB ABd: soft, ND, NT. liver is percussed 3 cm below the costal margin. Ext: no edema Assessment/Plan: Unfortunate 46 y/o man with h/o nicotine dependence who presented with fever and R chest pain and was found to have PNA and possible metastatic cancer 1- PNA : likely post obstructive . leukocytosis is worse - cont unasyn day 3 - repeat cxray with no change - follow blood cx - monitor fever curve 2- Possible metastatic cancer, with likely lung origin given his h/o smoking. other possibility is lymphoma with the LAP felt in R axilla and groins ( less likely ) s/p liver bx today - CT scan with a little lesion on R upper rib, probably bone invasion and causing his R CP ---> bone scan pending - CT Abd /Pelvis and Head MRI pending. 3- Nicotine dependence . Nicotine patch DVT PX with lovenox. resume tomorrow
[2017-06-15] MEDS ORDERED: oxyCODONE HCL 5 MG TABLET PO ONE (19:45)
[2017-06-16] MEDS ORDERED: PT OWN MED DRAWER 7, Y5N ONE ×4 (02:41→16:25)
[2017-06-16] MEDS: SODIUM CHLORIDE 1,000 ML IV SCH (02:46)
[2017-06-16] MEDS: AMPICILLIN NA/SULBACTAM NA 3 GM in SODIUM CHLORIDE 100 ML IVPB SCH ×4 (02:46→20:57)
[2017-06-16] MEDS: oxyCODONE HCL 5 MG TABLET PO PRN ×5 (03:59→19:34)
[2017-06-16 07:33] LABS: BASO % 0.3 % (0-2.0); EOS % 0.7 % (0-4.5); HEMATOCRIT 36.2 % (35.4-49); HEMOGLOBIN 12.1 GM/dL (11.7-16.9); LYMPH % 7.2 % (8-40); MCH 28.4 pg (25.7-33.7); MCHC 33.4 g/dl (32.0-35.9); MEAN CELL VOLUME 85.1 fl (80-96); MONO % 10.4 % (3.8-10.2); NEUT % 81.4 % (42.8-82.8); PLATELET COUNT 303 K/MM3 (134-434); RBC 4.26 M/mm3 (4.00-5.60); RDW 14.1 % (11.9-15.9); WHITE BLOOD COUNT 20.8 K/mm3 (4.0-10.0)
[2017-06-16 07:58] LABS: CALCIUM 7.6 mg/dL (8.5-10.1); CHLORIDE 98 mmol/L (98-107); POTASSIUM 3.6 mmol/L (3.5-5.1); SODIUM 136 mmol/L (136-145)
[2017-06-16 08:04] LABS: ALBUMIN 1.9 g/dl (3.4-5.0); ALK PHOS 147 U/L (45-117); ANION GAP 8 (8-16); BILIRUBIN,TOTAL 0.5 mg/dL (0.2-1.0); BLOOD UREA NITROGEN 7 mg/dL (7-18); CO2 30 mmol/L (21-32); CREATININE 0.7 mg/dL (0.7-1.3); GLUCOSE,RANDOM 87 mg/dL (74-106); LDH 241 U/L (87-241); SGOT/AST 61 U/L (15-37); SGPT/ALT 42 U/L (12-78); TOT PROT 5.4 g/dl (6.4-8.2)
[2017-06-16] MEDS: ENOXAPARIN NA (PORCINE) 40 MG/0.4 ML DISP.SYRIN SQ SCH (09:09)
[2017-06-16] MEDS: NICOTINE 21 MG/24 HOURS TOPICAL PATCH TD SCH (09:10)
--- NOTE | 2017-06-16 13:34 | PN ---
<Humberto Valle - Last Filed: 06/16/17 13:50> Physical Exam: SUBJECTIVE: Patient seen and examined No acute events overnight. Patient feels well this morning. Chest pain has improved, but he is having pain at the site of liver biopsy. Denies fever, chills, shortness of breath. OBJECTIVE: Vital Signs Period Temp Pulse Resp BP Sys/Victoria Pulse Ox Last 24 Hr 97.0 F-98.8 F 85-104 18-24 143-163/98-111 100 GENERAL: NAD, Well appearing, well nourished HEENT: Normal with no signs of trauma, PEERL, EOMI, Sclera anicteric, conjunctiva clear, oropharynx clear without exudates, MMM, No LAD, Full ROM LUNGS: CTABL, No wheezes/crackles/accessory muscle use HEART: RRR, S1, S2, no audible murmurs +Right chest wall tenderness ABDOMEN: Soft, RUQ tenderness, +guarding, BS+, +mild hepatomegaly EXTREMITIES: 2+ pulses, warm, well-perfused, no edema. NEUROLOGICAL: Cranial nerves II through XII grossly intact. Normal speech, gait not observed. PSYCH: Normal mood, normal affect. SKIN: Warm, dry, normal turgor, no rashes or lesions noted, +Right axillary and b/l inguinal LAD Laboratory Results - last 24 hr 06/16/17 06/16/17 06:00 06:00 WBC 20.8 H RBC 4.26 Hgb 12.1 Hct 36.2 MCV 85.1 MCH 28.4 MCHC 33.4 RDW 14.1 Plt Count 303 MPV 9.0 Neutrophils % 81.4 Lymphocytes % 7.2 L Monocytes % 10.4 H Eosinophils % 0.7 Basophils % 0.3 Sodium 136 Potassium 3.6 Chloride 98 Carbon Dioxide 30 Anion Gap 8 BUN 7 Creatinine 0.7 Creat Clearance w eGFR > 60 Random Glucose 87 Calcium 7.6 L Total Bilirubin 0.5 AST 61 H D ALT 42 Alkaline Phosphatase 147 H LD Total 241 Total Protein 5.4 L Albumin 1.9 L Active Medications Generic Name Dose Route Start Last Admin Trade Name Freq PRN Reason Stop Dose Admin Albuterol Sulfate 1 amp 06/13/17 01:15 Ventolin 0.083% Nebulizer Soln - NEB Q6H PRN SHORT OF BREATH/WHEEZING Enoxaparin Sodium 40 mg 06/16/17 10:00 06/16/17 09:09 Lovenox - SQ 40 mg DAILY TANNER Administration Sodium Chloride 1,000 mls @ 100 mls/hr 06/13/17 01:15 06/16/17 02:46 Normal Saline - IV Not Given ASDIR TANNER Ampicillin Sodium/Sulbactam 100 mls @ 200 mls/hr 06/13/17 03:00 06/16/17 09: 10 Sodium 3 gm/ Sodium Chloride IVPB 200 mls/hr Q6H-IV TANNER Administration Nicotine 21 mg 06/13/17 12:15 06/16/17 09:10 Nicoderm Patch - TD 21 mg DAILY TANNER Administration Ondansetron HCl 4 mg 06/13/17 01:32 06/13/17 08:50 Zofran Injection IVPUSH 4 mg Q6H PRN Administration NAUSEA Oxycodone HCl 5 mg 06/13/17 12:04 06/16/17 12:19 Roxicodone - PO 5 mg Q4H PRN Administration PAIN LEVEL 6-10 Pneumococcal 13-Valent Conj Vacc 0.5 ml 06/16/17 09:28 Prevnar 13 Syringe - IM 06/16/17 09:29 .ONCE ONE ASSESSMENT/PLAN: 46 year old M with pmh of 32 pack yr history smoker presented with fever and chest pain found to have pneumonia and possible metastatic cancer. #Pneumonia, likely post obstructive -Monitor wbc count, repeat cxr negative... wbc may be 2/2 to possible cancer -Continue Unasyn 3g q6h -Blood Cx pending NGTD #Possible Metastatic cancer -Multiorgan involvement -Liver biopsy results pending -CT abd pelvis reviewed, Brain MRI pending, and Bone scan pending -Oncology consulted, Dr Sifuentes -Oxycodone 5 mg q4h prn for pain control #Smoking history -Nicotine patch #FEN/GI -NS @ 100 cc/hr -wnl -Regular diet #PPx -Lovenox Visit type - Emergency Visit Emergency Visit: Yes ED Registration Date: 06/12/17 Care time: The patient presented to the Emergency Department on the above date and was hospitalized for further evaluation of their emergent condition. - New Patient This patient is new to me today: No - Critical Care Critical Care patient: No <Dwain Menezes - Last Filed: 06/16/17 19:34> Physical Exam: Patient seen and examined. Agree with the resident's note. Pending metastatic w/ u. # uncontrolled HTN will increase the dose of Lisinopril to 10mg po bid. Vital Signs Temperature 99.4 F 06/16/17 17:46 Pulse Rate 88 06/16/17 18:40 Respiratory Rate 18 06/16/17 18:40 Blood Pressure 171/105 06/16/17 18:40 O2 Sat by Pulse Oximetry (%) 100 06/16/17 09:00 CBCD WBC 20.8 K/mm3 (4.0-10.0) H 06/16/17 06:00 RBC 4.26 M/mm3 (4.00-5.60) 06/16/17 06:00 Hgb 12.1 GM/dL (11.7-16.9) 06/16/17 06:00 Hct 36.2 % (35.4-49) 06/16/17 06:00 MCV 85.1 fl (80-96) 06/16/17 06:00 MCHC 33.4 g/dl (32.0-35.9) 06/16/17 06:00 RDW 14.1 % (11.9-15.9) 06/16/17 06:00 Plt Count 303 K/MM3 (134-434) 06/16/17 06:00 MPV 9.0 fl (7.5-11.1) 06/16/17 06:00 CMP Sodium 136 mmol/L (136-145) 06/16/17 06:00 Potassium 3.6 mmol/L (3.5-5.1) 06/16/17 06:00 Chloride 98 mmol/L (98-107) 06/16/17 06:00 Carbon Dioxide 30 mmol/L (21-32) 06/16/17 06:00 Anion Gap 8 (8-16) 06/16/17 06:00 BUN 7 mg/dL (7-18) 06/16/17 06:00 Creatinine 0.7 mg/dL (0.7-1.3) 06/16/17 06:00 Creat Clearance w eGFR > 60 (>60) 06/16/17 06:00 Random Glucose 87 mg/dL (74-106) 06/16/17 06:00 Calcium 7.6 mg/dL (8.5-10.1) L 06/16/17 06:00 Total Bilirubin 0.5 mg/dL (0.2-1.0) 06/16/17 06:00 AST 61 U/L (15-37) H D 06/16/17 06:00 ALT 42 U/L (12-78) 06/16/17 06:00 Alkaline Phosphatase 147 U/L (45-117) H 06/16/17 06:00 Total Protein 5.4 g/dl (6.4-8.2) L 06/16/17 06:00 Albumin 1.9 g/dl (3.4-5.0) L 06/16/17 06:00 CARDIAC ENZYMES Troponin I < 0.02 ng/ml (0.00-0.05) 06/12/17 15:00 Current Medications Generic Name Dose Route Start Last Admin Trade Name Freq PRN Reason Stop Dose Admin Albuterol Sulfate 1 amp 06/13/17 01:15 Ventolin 0.083% Nebulizer Soln - NEB Q6H PRN SHORT OF BREATH/WHEEZING Enoxaparin Sodium 40 mg 06/16/17 10:00 06/16/17 09:09 Lovenox - SQ 40 mg DAILY TANNER Administration Ampicillin Sodium/Sulbactam 100 mls @ 200 mls/hr 06/13/17 03:00 06/16/17 15: 36 Sodium 3 gm/ Sodium Chloride IVPB 200 mls/hr Q6H-IV TANNER Administration Lisinopril 5 mg 06/17/17 10:00 Prinivil PO DAILY TANNER Morphine Sulfate 2 mg 06/16/17 17:07 06/16/17 17:23 Morphine Sulfate IVPUSH 2 mg Q4H PRN Administration PAIN LEVEL 6-10 Nicotine 21 mg 06/13/17 12:15 06/16/17 09:10 Nicoderm Patch - TD 21 mg DAILY TANNER Administration Ondansetron HCl 4 mg 06/13/17 01:32 06/13/17 08:50 Zofran Injection IVPUSH 4 mg Q6H PRN Administration NAUSEA Oxycodone HCl 5 mg 06/13/17 12:04 06/16/17 15:36 Roxicodone - PO 5 mg Q4H PRN Administration PAIN LEVEL 6-10 Home Medications Medication Instructions Recorded NK [No Known Home Medication] 06/12/17
--- NOTE | 2017-06-16 13:36 | PN ---
<Wade Dhaliwal - Last Filed: 06/16/17 13:26> Physical Exam: SERVICE: Hematology and Oncology SUBJECTIVE: Pt c/o pain at biopsy site but it's under control and eager to complete the rest of his workup. Denies fever, chills, hemoptysis, malaise, night sweet, chest pain, shortness of breath. OBJECTIVE: Last Vital Signs Temp Pulse Resp BP Pulse Ox 98.5 F 94 H 18 143/98 100 06/16/17 12:04 06/16/17 12:04 06/16/17 12:04 06/16/17 12:04 06/15/17 22:00 GENERAL: AAO x 3, not in cardiopulmonary distress HEAD: AT, NC EYES: PERRA, sclera anicteric, conjunctiva clear ENT: oropharynx clear without exudates, moist mucous membranes. NECK: No bruits or lymphedopathy LUNGS: CTAB HEART: RRR, S1, S2 without murmur, rub or gallop. ABDOMEN: Soft, nontender, nondistended, normoactive bowel sounds, no guarding, no rebound, dressing over biopsy site on R flank EXTREMITIES: 2+ pulses, warm, no edema. CBCD WBC 20.8 K/mm3 (4.0-10.0) H 06/16/17 06:00 RBC 4.26 M/mm3 (4.00-5.60) 06/16/17 06:00 Hgb 12.1 GM/dL (11.7-16.9) 06/16/17 06:00 Hct 36.2 % (35.4-49) 06/16/17 06:00 MCV 85.1 fl (80-96) 06/16/17 06:00 MCHC 33.4 g/dl (32.0-35.9) 06/16/17 06:00 RDW 14.1 % (11.9-15.9) 06/16/17 06:00 Plt Count 303 K/MM3 (134-434) 06/16/17 06:00 MPV 9.0 fl (7.5-11.1) 06/16/17 06:00 CMP Sodium 136 mmol/L (136-145) 06/16/17 06:00 Potassium 3.6 mmol/L (3.5-5.1) 06/16/17 06:00 Chloride 98 mmol/L (98-107) 06/16/17 06:00 Carbon Dioxide 30 mmol/L (21-32) 06/16/17 06:00 Anion Gap 8 (8-16) 06/16/17 06:00 BUN 7 mg/dL (7-18) 06/16/17 06:00 Creatinine 0.7 mg/dL (0.7-1.3) 06/16/17 06:00 Creat Clearance w eGFR > 60 (>60) 06/16/17 06:00 Calcium 7.6 mg/dL (8.5-10.1) L 06/16/17 06:00 Total Bilirubin 0.5 mg/dL (0.2-1.0) 06/16/17 06:00 AST 61 U/L (15-37) H D 06/16/17 06:00 ALT 42 U/L (12-78) 06/16/17 06:00 Alkaline Phosphatase 147 U/L (45-117) H 06/16/17 06:00 Total Protein 5.4 g/dl (6.4-8.2) L 06/16/17 06:00 Albumin 1.9 g/dl (3.4-5.0) L 06/16/17 06:00 IMAGING Bone scan on 06/16: pending Brain MRI on 06/16: Pending read Needle biopsy of liver on 06/15: pending report CT a/p on 06/15: metastasis in liver, R adrenal, LLL, rectosigmoid irregular annular wall thickening (inflammatory vs. infectious colitis vs. neoplasia), 1.5x1.5 lesion in pancreatic head, lesion in renal upper pole CT with contrast on 06/12: L perihilar mass and 1.2 spiculated nodule in LLL; 4.0 cm R adrenal mass; hepatic metases X-ray on 06/12: L hilar mass ASSESSMENT/PLAN 46 yo AA current daily smoker without other significant medical or family history admitted to the hospital for post-obstructive pneumonia. #PNA #Nicotine dependence #Metastatic cancer - likely lung being primary - underwent CT Chest/abdomen/pelvis, liver needle biopsy and MRI of brain, awaiting bone scan and path/staging reports [facility] PGY2 Pager: [phone] Visit type - Emergency Visit Emergency Visit: No - New Patient This patient is new to me today: No - Critical Care Critical Care patient: No - Discharge Referral Referred to [facility] Med P.C[facility] No <Stephie Sifuentes - Last Filed: 06/16/17 21:06> Physical Exam: SUBJECTIVE: Patient seen and examined. Plan d/w resident OBJECTIVE: Vital Signs Period Temp Pulse Resp BP Sys/Victoria Pulse Ox Last 24 Hr 98 F-99.4 F 82-104 18-24 143-196/98-109 100-100 GENERAL: The patient is awake, alert, and fully oriented, in no acute distress. HEAD: Normal with no signs of trauma. EYES: PERRL, extraocular movements intact, sclera anicteric, conjunctiva clear. No ptosis. ENT: Ears normal, nares patent, oropharynx clear without exudates, moist mucous membranes. NECK: Trachea midline, full range of motion, supple. LUNGS: Breath sounds equal, clear to auscultation bilaterally, no wheezes, no crackles, no accessory muscle use. HEART: Regular rate and rhythm, S1, S2 without murmur, rub or gallop. ABDOMEN: Soft, nontender, nondistended, normoactive bowel sounds, no guarding, no rebound, no hepatosplenomegaly, no masses. EXTREMITIES: 2+ pulses, warm, well-perfused, no edema. NEUROLOGICAL: Cranial nerves II through XII grossly intact. Normal speech, gait not observed. PSYCH: Normal mood, normal affect. SKIN: Warm, dry, normal turgor, no rashes or lesions noted Laboratory Results - last 24 hr 06/16/17 06/16/17 06:00 06:00 WBC 20.8 H RBC 4.26 Hgb 12.1 Hct 36.2 MCV 85.1 MCH 28.4 MCHC 33.4 RDW 14.1 Plt Count 303 MPV 9.0 Neutrophils % 81.4 Lymphocytes % 7.2 L Monocytes % 10.4 H Eosinophils % 0.7 Basophils % 0.3 Sodium 136 Potassium 3.6 Chloride 98 Carbon Dioxide 30 Anion Gap 8 BUN 7 Creatinine 0.7 Creat Clearance w eGFR > 60 Random Glucose 87 Calcium 7.6 L Total Bilirubin 0.5 AST 61 H D ALT 42 Alkaline Phosphatase 147 H LD Total 241 Total Protein 5.4 L Albumin 1.9 L Active Medications Generic Name Dose Route Start Last Admin Trade Name Freq PRN Reason Stop Dose Admin Albuterol Sulfate 1 amp 06/13/17 01:15 Ventolin 0.083% Nebulizer Soln - NEB Q6H PRN SHORT OF BREATH/WHEEZING Enoxaparin Sodium 40 mg 06/16/17 10:00 06/16/17 09:09 Lovenox - SQ 40 mg DAILY TANNER Administration Ampicillin Sodium/Sulbactam 100 mls @ 200 mls/hr 06/13/17 03:00 06/16/17 15: 36 Sodium 3 gm/ Sodium Chloride IVPB 200 mls/hr Q6H-IV TANNER Administration Lisinopril 10 mg 06/16/17 20:00 Prinivil PO BID TANNER Morphine Sulfate 2 mg 06/16/17 17:07 06/16/17 17:23 Morphine Sulfate IVPUSH 2 mg Q4H PRN Administration PAIN LEVEL 6-10 Nicotine 21 mg 06/13/17 12:15 06/16/17 09:10 Nicoderm Patch - TD 21 mg DAILY TANNER Administration Ondansetron HCl 4 mg 06/13/17 01:32 06/13/17 08:50 Zofran Injection IVPUSH 4 mg Q6H PRN Administration NAUSEA Oxycodone HCl 5 mg 06/13/17 12:04 06/16/17 19:34 Roxicodone - PO 5 mg Q4H PRN Administration PAIN LEVEL 6-10 ASSESSMENT/PLAN: await pathology Negative MRI brain and bone scan will follow
[2017-06-16] MEDS ORDERED: PNEUMOC 13-VAL CONJ-DIP CRM/PF 0.5 ML DISP.SYRIN IM ONE (16:00)
[2017-06-16] MEDS: morphine SULFATE 4 MG/ML VIAL IVPUSH PRN (17:23)
[2017-06-16] MEDS ORDERED: METOPROLOL TARTRATE 25 MG TABLET (FP) PO ONE (18:39)
[2017-06-16] MEDS: LISINOPRIL 5 MG TABLET (FP) PO SCH (21:11)
[2017-06-17] MEDS: LISINOPRIL 5 MG TABLET (FP) PO SCH ×3 (00:01→21:25)
[2017-06-17] MEDS: oxyCODONE HCL 5 MG TABLET PO PRN ×6 (00:04→22:47)
[2017-06-17] MEDS: AMPICILLIN NA/SULBACTAM NA 3 GM in SODIUM CHLORIDE 100 ML IVPB SCH ×4 (02:12→21:25)
[2017-06-17 07:55] LABS: ALBUMIN 1.9 g/dl (3.4-5.0); ALK PHOS 168 U/L (45-117); ANION GAP 9 (8-16); BASO % 0.4 % (0-2.0); BILIRUBIN,TOTAL 0.6 mg/dL (0.2-1.0); BLOOD UREA NITROGEN 7 mg/dL (7-18); CALCIUM 7.9 mg/dL (8.5-10.1); CHLORIDE 96 mmol/L (98-107); CO2 32 mmol/L (21-32); CREATININE 0.7 mg/dL (0.7-1.3); EOS % 0.9 % (0-4.5); GLUCOSE,RANDOM 99 mg/dL (74-106); HEMATOCRIT 34.7 % (35.4-49); HEMOGLOBIN 11.7 GM/dL (11.7-16.9); LYMPH % 8.2 % (8-40); MCH 28.8 pg (25.7-33.7); MCHC 33.8 g/dl (32.0-35.9); MEAN CELL VOLUME 85.1 fl (80-96); MEAN PLT VOLUME 9.2 fl (7.5-11.1); MONO % 11.2 % (3.8-10.2); NEUT % 79.3 % (42.8-82.8); PLATELET COUNT 284 K/MM3 (134-434); POTASSIUM 3.6 mmol/L (3.5-5.1); RBC 4.08 M/mm3 (4.00-5.60); RDW 14.1 % (11.9-15.9); SGOT/AST 65 U/L (15-37); SGPT/ALT 44 U/L (12-78); SODIUM 137 mmol/L (136-145); TOT PROT 5.4 g/dl (6.4-8.2); WHITE BLOOD COUNT 20.9 K/mm3 (4.0-10.0)
[2017-06-17] MEDS: morphine SULFATE 4 MG/ML VIAL IVPUSH PRN ×3 (08:01→18:22)
[2017-06-17] MEDS ORDERED: PT OWN MED DRAWER 7, Y5N ONE ×3 (09:04→21:14)
[2017-06-17] MEDS: NICOTINE 21 MG/24 HOURS TOPICAL PATCH TD SCH (09:05)
[2017-06-17] MEDS: ENOXAPARIN NA (PORCINE) 40 MG/0.4 ML DISP.SYRIN SQ SCH (09:05)
[2017-06-17] MEDS ORDERED: amLODIPine BESYLATE 5 MG TABLET (FP) PO SCH (10:00)
[2017-06-17] MEDS ORDERED: LISINOPRIL 5 MG TABLET (FP) PO SCH (10:00)
--- NOTE | 2017-06-17 11:06 | PN ---
<Humberto Valle - Last Filed: 06/17/17 16:19> Physical Exam: SUBJECTIVE: Patient seen and examined No acute events overnight. Patient continues to have pain at the biopsy site. Otherwise awaiting results. Denies chest pain, sob, fever, chills OBJECTIVE: Vital Signs Period Temp Pulse Resp BP Sys/Victoria Pulse Ox Last 24 Hr 97.7 F-99.4 F 77-94 16-18 143-196/11-109 98-98 GENERAL: NAD, Well appearing, well nourished HEENT: Normal with no signs of trauma, PEERL, EOMI, Sclera anicteric, conjunctiva clear, oropharynx clear without exudates, MMM, No LAD, Full ROM LUNGS: CTABL, No wheezes/crackles/accessory muscle use HEART: RRR, S1, S2, no audible murmurs +Right chest wall tenderness ABDOMEN: Soft, RUQ tenderness, +guarding, BS+, +mild hepatomegaly EXTREMITIES: 2+ pulses, warm, well-perfused, no edema. NEUROLOGICAL: Cranial nerves II through XII grossly intact. Normal speech, gait not observed. PSYCH: Normal mood, normal affect. SKIN: Warm, dry, normal turgor, no rashes or lesions noted, +Right axillary and b/l inguinal LAD Laboratory Results - last 24 hr 06/16/17 06/17/17 06/17/17 06:00 06:00 06:00 WBC 20.9 H RBC 4.08 Hgb 11.7 Hct 34.7 L MCV 85.1 MCH 28.8 MCHC 33.8 RDW 14.1 Plt Count 284 MPV 9.2 Neutrophils % 79.3 Lymphocytes % 8.2 Monocytes % 11.2 H Eosinophils % 0.9 Basophils % 0.4 Sodium 137 Potassium 3.6 Chloride 96 L Carbon Dioxide 32 Anion Gap 9 BUN 7 Creatinine 0.7 Creat Clearance w eGFR > 60 Random Glucose 99 Calcium 7.9 L Total Bilirubin 0.6 AST 65 H ALT 44 Alkaline Phosphatase 168 H Total Protein 5.4 L Albumin 1.9 L Tumor Marker AFP 1.3 Hep C Ab Diagnostic <0.1 Liver Fibrosis Interp Active Medications Generic Name Dose Route Start Last Admin Trade Name Freq PRN Reason Stop Dose Admin Albuterol Sulfate 1 amp 06/13/17 01:15 Ventolin 0.083% Nebulizer Soln - NEB Q6H PRN SHORT OF BREATH/WHEEZING Enoxaparin Sodium 40 mg 06/16/17 10:00 06/17/17 09:05 Lovenox - SQ 40 mg DAILY TANNER Administration Ampicillin Sodium/Sulbactam 100 mls @ 200 mls/hr 06/13/17 03:00 06/17/17 09: 05 Sodium 3 gm/ Sodium Chloride IVPB 200 mls/hr Q6H-IV TANNER Administration Lisinopril 10 mg 06/16/17 20:00 06/17/17 09:05 Prinivil PO 10 mg BID TANNER Administration Morphine Sulfate 2 mg 06/16/17 17:07 06/17/17 08:01 Morphine Sulfate IVPUSH 2 mg Q4H PRN Administration PAIN LEVEL 6-10 Nicotine 21 mg 06/13/17 12:15 06/17/17 09:05 Nicoderm Patch - TD 21 mg DAILY TANNER Administration Ondansetron HCl 4 mg 06/13/17 01:32 06/13/17 08:50 Zofran Injection IVPUSH 4 mg Q6H PRN Administration NAUSEA Oxycodone HCl 5 mg 06/13/17 12:04 06/17/17 09:15 Roxicodone - PO 5 mg Q4H PRN Administration PAIN LEVEL 6-10 ASSESSMENT/PLAN: 46 year old M with pmh of 32 pack yr history smoker presented with fever and chest pain found to have pneumonia and possible metastatic cancer. #Pneumonia, likely post obstructive -Monitor wbc count, repeat cxr negative... wbc may be 2/2 to possible cancer -Continue Unasyn 3g q6h -Blood Cx pending NGTD #Possible Metastatic cancer -Multiorgan involvement -Liver biopsy results pending -CT abd pelvis reviewed, Brain MRI reviewed, and Bone scan reviewed -Oncology consulted, Dr Sifuentes -Oxycodone 5 mg q4h prn for pain control #Smoking history -Nicotine patch #HTN -Lisinopril 10 mg #FEN/GI -NS @ 100 cc/hr -wnl -Regular diet #PPx -Lovenox Visit type - Emergency Visit Emergency Visit: Yes ED Registration Date: 06/12/17 Care time: The patient presented to the Emergency Department on the above date and was hospitalized for further evaluation of their emergent condition. - New Patient This patient is new to me today: No - Critical Care Critical Care patient: No <Dwain Menezes - Last Filed: 06/17/17 18:59> Physical Exam: Waiting for Liver Bx report. Bone scan is negative.
--- NOTE | 2017-06-17 11:21 | PN ---
Progress Note (short form) - Note Progress Note: Improving discomfort at biopsy site. Denies CP or SOB. No acute events overnight. Intake & Output 06/14/17 06/15/17 06/16/17 06/17/17 23:59 23:59 23:59 23:59 Intake Total 900 1120 1550 200 Balance 900 1120 1550 200 Last Vital Signs Temp Pulse Resp BP Pulse Ox 98.4 F 80 16 160/11 98 06/17/17 09:00 06/17/17 09:00 06/17/17 09:00 06/17/17 09:00 06/17/17 09:00 Active Medications Albuterol Sulfate (Ventolin 0.083% Nebulizer Soln -) 1 amp NEB Q6H PRN PRN Reason: SHORT OF BREATH/WHEEZING Enoxaparin Sodium (Lovenox -) 40 mg SQ DAILY [facility] Last Admin: 06/17/17 09:05 Dose: 40 mg Ampicillin Sodium/Sulbactam (Sodium 3 gm/ Sodium Chloride) 100 mls @ 200 mls/ hr IVPB Q6H-IV TANNER Last Admin: 06/17/17 09:05 Dose: 200 mls/hr Lisinopril (Prinivil) 10 mg PO BID [facility] Last Admin: 06/17/17 09:05 Dose: 10 mg Morphine Sulfate (Morphine Sulfate) 2 mg IVPUSH Q4H PRN PRN Reason: PAIN LEVEL 6-10 Last Admin: 06/17/17 08:01 Dose: 2 mg Nicotine (Nicoderm Patch -) 21 mg TD DAILY [facility] Last Admin: 06/17/17 09:05 Dose: 21 mg Ondansetron HCl (Zofran Injection) 4 mg IVPUSH Q6H PRN PRN Reason: NAUSEA Last Admin: 06/13/17 08:50 Dose: 4 mg Oxycodone HCl (Roxicodone -) 5 mg PO Q4H PRN PRN Reason: PAIN LEVEL 6-10 Last Admin: 06/17/17 09:15 Dose: 5 mg Constitutional: Yes: NAD Eyes: Yes: Conjunctiva Clear, EOM Intact HENT: Yes: Atraumatic, Normocephalic Neck: Yes: Supple, Trachea Midline Cardiovascular: Yes: Regular Rate and Rhythm Respiratory: Yes: Regular, CTA Bilaterally ...Clubbing: No Gastrointestinal: Yes: Normal Bowel Sounds, Soft Edema: No Neurological: Yes: Alert, Oriented Labs: Laboratory Results - last 24 hr 06/16/17 06/17/17 06/17/17 06:00 06:00 06:00 WBC 20.9 H RBC 4.08 Hgb 11.7 Hct 34.7 L MCV 85.1 MCH 28.8 MCHC 33.8 RDW 14.1 Plt Count 284 MPV 9.2 Neutrophils % 79.3 Lymphocytes % 8.2 Monocytes % 11.2 H Eosinophils % 0.9 Basophils % 0.4 Sodium 137 Potassium 3.6 Chloride 96 L Carbon Dioxide 32 Anion Gap 9 BUN 7 Creatinine 0.7 Creat Clearance w eGFR > 60 Random Glucose 99 Calcium 7.9 L Total Bilirubin 0.6 AST 65 H ALT 44 Alkaline Phosphatase 168 H Total Protein 5.4 L Albumin 1.9 L Tumor Marker AFP 1.3 Hep C Ab Diagnostic <0.1 Liver Fibrosis Interp Problem List - Problems (1) Lung mass Code(s): R91.8 - OTHER NONSPECIFIC ABNORMAL FINDING OF LUNG FIELD (2) Liver mass Code(s): R16.0 - HEPATOMEGALY, NOT ELSEWHERE CLASSIFIED (3) Lung nodule Code(s): R91.1 - SOLITARY PULMONARY NODULE (4) Adrenal mass Code(s): E27.9 - DISORDER OF ADRENAL GLAND, UNSPECIFIED Assessment/Plan Lung Mass Likely Metastatic Lung Cancer to Liver, Adrenal Pathology pending Staging in progress VTE prophylaxis No smoking Dr Muller
--- NOTE | 2017-06-17 12:28 | PN ---
<DhaliwalWade - Last Filed: 06/17/17 12:27> Physical Exam: SERVICE: Hematology and Oncology SUBJECTIVE: Pt as no complaint. Denies fever, chills, hemoptysis, malaise, night sweet, chest pain, shortness of breath. OBJECTIVE: Last Vital Signs Temp Pulse Resp BP Pulse Ox 98.4 F 80 16 160/11 98 06/17/17 09:00 06/17/17 09:00 06/17/17 09:00 06/17/17 09:00 06/17/17 09:00 GENERAL: AAO x 3, not in cardiopulmonary distress HEAD: AT, NC EYES: PERRA, sclera anicteric, conjunctiva clear ENT: oropharynx clear without exudates, moist mucous membranes. NECK: No bruits or lymphedopathy LUNGS: CTAB HEART: RRR, S1, S2 without murmur, rub or gallop. ABDOMEN: Soft, nontender, nondistended, normoactive bowel sounds, no guarding, no rebound, dressing over biopsy site on R flank EXTREMITIES: 2+ pulses, warm, no edema. CBCD WBC 20.9 K/mm3 (4.0-10.0) H 06/17/17 06:00 RBC 4.08 M/mm3 (4.00-5.60) 06/17/17 06:00 Hgb 11.7 GM/dL (11.7-16.9) 06/17/17 06:00 Hct 34.7 % (35.4-49) L 06/17/17 06:00 MCV 85.1 fl (80-96) 06/17/17 06:00 MCHC 33.8 g/dl (32.0-35.9) 06/17/17 06:00 RDW 14.1 % (11.9-15.9) 06/17/17 06:00 Plt Count 284 K/MM3 (134-434) 06/17/17 06:00 MPV 9.2 fl (7.5-11.1) 06/17/17 06:00 CMP Sodium 137 mmol/L (136-145) 06/17/17 06:00 Potassium 3.6 mmol/L (3.5-5.1) 06/17/17 06:00 Chloride 96 mmol/L (98-107) L 06/17/17 06:00 Carbon Dioxide 32 mmol/L (21-32) 06/17/17 06:00 Anion Gap 9 (8-16) 06/17/17 06:00 BUN 7 mg/dL (7-18) 06/17/17 06:00 Creatinine 0.7 mg/dL (0.7-1.3) 06/17/17 06:00 Creat Clearance w eGFR > 60 (>60) 06/17/17 06:00 Calcium 7.9 mg/dL (8.5-10.1) L 06/17/17 06:00 Total Bilirubin 0.6 mg/dL (0.2-1.0) 06/17/17 06:00 AST 65 U/L (15-37) H 06/17/17 06:00 ALT 44 U/L (12-78) 06/17/17 06:00 Alkaline Phosphatase 168 U/L (45-117) H 06/17/17 06:00 Total Protein 5.4 g/dl (6.4-8.2) L 06/17/17 06:00 Albumin 1.9 g/dl (3.4-5.0) L 06/17/17 06:00 IMAGING Bone scan on 06/16: pending read Brain MRI on 06/16: no acute pathology Needle biopsy of liver on 06/15: pending report CT a/p on 06/15: metastasis in liver, R adrenal, LLL, rectosigmoid irregular annular wall thickening (inflammatory vs. infectious colitis vs. neoplasia), 1.5x1.5 lesion in pancreatic head, lesion in renal upper pole CT with contrast on 06/12: L perihilar mass and 1.2 spiculated nodule in LLL; 4.0 cm R adrenal mass; hepatic metases X-ray on 06/12: L hilar mass ASSESSMENT/PLAN 46 yo AA current daily smoker without other significant medical or family history admitted to the hospital for post-obstructive pneumonia. #PNA #Nicotine dependence #Metastatic cancer - likely lung being primary - awaiting bone scan and path/staging reports Wade Dhaliwal [facility] PGY2 Pager: [phone] Visit type - Emergency Visit Emergency Visit: No - New Patient This patient is new to me today: No - Critical Care Critical Care patient: No - Discharge Referral Referred to [facility] Med P.C.: No <Stephie Sifuentes - Last Filed: 06/17/17 17:32> Physical Exam: pathology reviewed WILL discuss with patient. seems metastatic squamous lung.
--- NOTE | 2017-06-17 15:28 | PATH ---
Surgical Pathology Report Patient Name: RIOS RIVERA [facility]. Rec. #: [id number] /Age/Gender: 1970 (Age: 46) / M Account: [id number] Location: [facility] MED/SURG Taken: 06/15/2017 Received: 06/15/2017 Reported: 06/17/2017 Physicians: Carlos Puckett M.D. Hanady Zainah, M.D. Specimen(s) Received LIVER BIOPSY Clinical History 46-year-old male with lung mass and extensive infiltrative liver mass Final Diagnosis LIVER, BIOPSY: POORLY DIFFERENTIATED SQUAMOUS CELL CARCINOMA, SEE COMMENT. Comment: The biopsy cores are predominantly comprised of malignant epithelial cells with areas of tumor necrosis. Immunohistochemical stains performed and interpreted at [facility] show the tumor is diffusely positive for AE1/3, CK7, and p63, focally positive for CK20, while negative for TTF-1. Additional immunohistochemical stains performed at [place], [place] ([id number]) and interpreted at [facility] show the tumor is positive for CK5/6 and p40. Overall findings are consistent with a metastatic poorly differentiated squamous cell carcinoma. Suggest clinical/radiologic correlation. PDL-1 is pending and will be reported separately. Findings discussed with Dr. Sifuentes. Electronically Signed Nora Sterling M.D. Addendum Reported: 06/21/2017 Addendum Diagnosis PD-L1 (Keytruda) IHC, Clone 22C3 Pharm DX performed and interpreted at [place], [place] ([id number]) shows the following: RESULT: PD-L1 (Keytruda) TPS: 9% (Low PD-L1 Expression) Reference Range: TPS=Tumor Proportion Score (% of at least 100 viable tumor cells showing complete or partial membrane staining at = 1+) TPS <1% = No Expression TPS 1-49% = Low Expression. (Eligible for second line treatment with Keytruda) TPS =50% = High Expression. (Eligible for first or second line treatment with Keytruda) Additional molecular tests requested by Dr. Sifuentes are pending, and a report will follow. Erick Hwang M.D. Addendum Reported: 06/24/2017 Addendum Diagnosis At the request of Dr. Sifuentes, the following tests were ordered: Lung FISH Panel performed and interpreted at [facility] in [place], [place] ([id number]) shows the following: INTERPRETATION: No evidence of a rearrangement of ALK (2p23). COMMENTS: 3-4 copies of ALK (2p23) are seen in 40% of cells. Molecular Pathology Report received from [facility] in [place], [place] ([id number]) shows the following: EGFR MUTATION ANALYSIS RESULTS: No mutation detected. Interpretation: No mutations were identified in the sample provided for analysis. Fewer than 5% of non-small cell lung carcinoma patients without identifiable mutations are reported to be responsive to EGFR tyrosine kinase inhibitor therapies. Comment: This test has been approved by the Food and Drug Administration (FDA). Erick Hwang M.D. Gross Description Received in formalin labeled "liver biopsy," are 4 maldonado, cylindrical portions of soft tissue ranging from 0.4-2.0 cm in length and averaging 0.1 cm in diameter. The specimens are submitted in toto in one cassette. 06/15/201706/15/2017
[2017-06-18 00:12] LABS: HBSAG SCREEN Negative (Negative); HEP A AB, IGM Negative (Negative); HEP B CORE AB, TOT Negative (Negative)
[2017-06-18] MEDS ORDERED: PT OWN MED DRAWER 7, Y5N ONE ×3 (02:14→14:18)
[2017-06-18] MEDS: AMPICILLIN NA/SULBACTAM NA 3 GM in SODIUM CHLORIDE 100 ML IVPB SCH ×3 (02:16→14:31)
[2017-06-18] MEDS: oxyCODONE HCL 5 MG TABLET PO PRN ×3 (04:59→13:57)
[2017-06-18 08:22] LABS: HEMATOCRIT 35.3 % (35.4-49); HEMOGLOBIN 11.7 GM/dL (11.7-16.9); MCH 28.3 pg (25.7-33.7); MCHC 33.3 g/dl (32.0-35.9); MEAN CELL VOLUME 85.1 fl (80-96); MEAN PLT VOLUME 9.2 fl (7.5-11.1); PLATELET COUNT 300 K/MM3 (134-434); RBC 4.14 M/mm3 (4.00-5.60); RDW 14.4 % (11.9-15.9); WHITE BLOOD COUNT 20.8 K/mm3 (4.0-10.0)
[2017-06-18 08:34] LABS: CALCIUM 7.8 mg/dL (8.5-10.1); CHLORIDE 96 mmol/L (98-107); POTASSIUM 3.6 mmol/L (3.5-5.1); SODIUM 138 mmol/L (136-145)
[2017-06-18 08:39] LABS: ALBUMIN 1.9 g/dl (3.4-5.0); ALK PHOS 171 U/L (45-117); ANION GAP 8 (8-16); BILIRUBIN,TOTAL 0.6 mg/dL (0.2-1.0); BLOOD UREA NITROGEN 6 mg/dL (7-18); CO2 34 mmol/L (21-32); CREATININE 0.7 mg/dL (0.7-1.3); GLUCOSE,RANDOM 79 mg/dL (74-106); SGOT/AST 64 U/L (15-37); SGPT/ALT 43 U/L (12-78); TOT PROT 5.8 g/dl (6.4-8.2)
[2017-06-18] MEDS: morphine SULFATE 4 MG/ML VIAL IVPUSH PRN ×2 (08:40→13:05)
[2017-06-18] MEDS: LISINOPRIL 5 MG TABLET (FP) PO SCH (09:34)
[2017-06-18] MEDS: NICOTINE 21 MG/24 HOURS TOPICAL PATCH TD SCH (09:34)
[2017-06-18] MEDS: ENOXAPARIN NA (PORCINE) 40 MG/0.4 ML DISP.SYRIN SQ SCH (09:34)
[2017-06-18 12:02] LABS: ACANTHOCYTES 0; ANISOCYTOSIS 0; HELMET CELLS 0; HOWELL-JOLLY BODIES 0; MACROCYTOSIS 0; OVALOCYTE 0; PLATELET ESTIMATE NORMAL; ROULEAU 0; SICKELED CELLS 0; TARGET CELLS 0; TEAR DROP CELLS 0; TOXIC GRANULATION 0
[2017-06-18 15:10] VITALS: BP 144/103; PULSE 86; TEMP 98
--- NOTE | 2017-06-18 15:27 | PN ---
Physical Exam: SERVICE: Hematology and Oncology SUBJECTIVE: No complaint from the patient and no acute event noted overnight. OBJECTIVE: Last Vital Signs Temp Pulse Resp BP Pulse Ox 98.0 F 86 20 144/103 96 06/18/17 15:08 06/18/17 15:08 06/18/17 15:08 06/18/17 15:08 06/18/17 09:00 GENERAL: AAO x 3, not in cardiopulmonary distress HEAD: AT, NC EYES: PERRA, sclera anicteric, conjunctiva clear ENT: oropharynx clear without exudates, moist mucous membranes. NECK: No bruits or lymphedopathy LUNGS: CTAB HEART: RRR, S1, S2 without murmur, rub or gallop. ABDOMEN: Soft, nontender, nondistended, normoactive bowel sounds, no guarding, no rebound, dressing over biopsy site on R flank EXTREMITIES: 2+ pulses, warm, no edema. CBCD WBC 20.8 K/mm3 (4.0-10.0) H 06/18/17 06:00 RBC 4.14 M/mm3 (4.00-5.60) 06/18/17 06:00 Hgb 11.7 GM/dL (11.7-16.9) 06/18/17 06:00 Hct 35.3 % (35.4-49) L 06/18/17 06:00 MCV 85.1 fl (80-96) 06/18/17 06:00 MCHC 33.3 g/dl (32.0-35.9) 06/18/17 06:00 RDW 14.4 % (11.9-15.9) 06/18/17 06:00 Plt Count 300 K/MM3 (134-434) 06/18/17 06:00 MPV 9.2 fl (7.5-11.1) 06/18/17 06:00 CMP Sodium 138 mmol/L (136-145) 06/18/17 06:00 Potassium 3.6 mmol/L (3.5-5.1) 06/18/17 06:00 Chloride 96 mmol/L (98-107) L 06/18/17 06:00 Carbon Dioxide 34 mmol/L (21-32) H 06/18/17 06:00 Anion Gap 8 (8-16) 06/18/17 06:00 BUN 6 mg/dL (7-18) L 06/18/17 06:00 Creatinine 0.7 mg/dL (0.7-1.3) 06/18/17 06:00 Creat Clearance w eGFR > 60 (>60) 06/18/17 06:00 Calcium 7.8 mg/dL (8.5-10.1) L 06/18/17 06:00 Total Bilirubin 0.6 mg/dL (0.2-1.0) 06/18/17 06:00 AST 64 U/L (15-37) H 06/18/17 06:00 ALT 43 U/L (12-78) 06/18/17 06:00 Alkaline Phosphatase 171 U/L (45-117) H 06/18/17 06:00 Total Protein 5.8 g/dl (6.4-8.2) L 06/18/17 06:00 Albumin 1.9 g/dl (3.4-5.0) L 06/18/17 06:00 IMAGING Bone scan on 06/16: normal Brain MRI on 06/16: no acute pathology Needle biopsy of liver on 06/15: poorly differentiated squamous cell CA CT a/p on 06/15: metastasis in liver, R adrenal, LLL, rectosigmoid irregular annular wall thickening (inflammatory vs. infectious colitis vs. neoplasia), 1.5x1.5 lesion in pancreatic head, lesion in renal upper pole CT with contrast on 06/12: L perihilar mass and 1.2 spiculated nodule in LLL; 4.0 cm R adrenal mass; hepatic metases X-ray on 06/12: L hilar mass ASSESSMENT/PLAN 46 yo AA current daily smoker without other significant medical or family history admitted to the hospital for post-obstructive pneumonia. #PNA #Nicotine dependence #Metastatic cancer - likely primary squamous cell CA of the lung - chemotherapy as outpatient Wade Dhaliwal [facility] PGY2 Pager: [phone] Visit type - Emergency Visit Emergency Visit: No - New Patient This patient is new to me today: No - Critical Care Critical Care patient: No - Discharge Referral Referred to [facility] Med P.C.: No
--- NOTE | 2017-06-18 16:15 | DS ---
Physical Exam: Microbiology 06/12/17 16:03 Nasopharyngeal Swab Influenza Types A,B Antigen (CHIO) - Final 06/12/17 16:03 Nasopharyngeal Swab - Final 06/12/17 15:43 Urine - Urine Clean Catch Urine Culture - Final NO GROWTH OBTAINED 06/12/17 15:00 Blood - Peripheral Venous Blood Culture - Final NO GROWTH AFTER 5 DAYS INCUBATION 06/12/17 15:00 Blood - Peripheral Venous Blood Culture - Final NO GROWTH AFTER 5 DAYS INCUBATION Selected Entries 06/18/17 06/18/17 09:00 15:08 Temperature 98.0 F Pulse Rate 86 Respiratory 20 Rate Blood Pressure 144/103 O2 Sat by Pulse 96 Oximetry (%) Oxygen Delivery Room Air Method Laboratory Tests 06/12/17 06/12/17 06/12/17 15:00 15:00 15:00 WBC 20.6 H Hgb Hct Plt Count INR 1.28 H Sodium Potassium Chloride Carbon Dioxide Anion Gap BUN Creatinine Creat Clearance w eGFR Random Glucose Lactic Acid 1.0 AST ALT Alkaline Phosphatase Troponin I Tumor Marker AFP Hep A IgM Ab Confirm Hepatitis A Ab Total Hep Bs Antigen Hep Bs Antibody Hep B Core Total Ab Hep C Ab Diagnostic Liver Fibrosis Interp 06/12/17 06/13/17 06/14/17 15:00 12:00 06:05 WBC 18.3 H 17.8 H Hgb Hct Plt Count INR Sodium Potassium Chloride Carbon Dioxide Anion Gap BUN Creatinine Creat Clearance w eGFR Random Glucose Lactic Acid AST ALT Alkaline Phosphatase Troponin I < 0.02 Tumor Marker AFP Hep A IgM Ab Confirm Hepatitis A Ab Total Hep Bs Antigen Hep Bs Antibody Hep B Core Total Ab Hep C Ab Diagnostic Liver Fibrosis Interp 06/15/17 06/16/17 06/16/17 06:00 06:00 06:00 WBC 21.3 H 20.8 H Hgb Hct Plt Count INR Sodium Potassium Chloride Carbon Dioxide Anion Gap BUN Creatinine Creat Clearance w eGFR Random Glucose Lactic Acid AST ALT Alkaline Phosphatase Troponin I Tumor Marker AFP 1.3 Hep A IgM Ab Confirm Negative Hepatitis A Ab Total Positive H Hep Bs Antigen Negative Hep Bs Antibody Non reactive Hep B Core Total Ab Negative Hep C Ab Diagnostic <0.1 Liver Fibrosis Interp 06/17/17 06/18/17 06/18/17 06:00 06:00 06:00 WBC 20.9 H 20.8 H Hgb 11.7 Hct 35.3 L Plt Count 300 INR Sodium 138 Potassium 3.6 Chloride 96 L Carbon Dioxide 34 H Anion Gap 8 BUN 6 L Creatinine 0.7 Creat Clearance w eGFR > 60 Random Glucose 79 D Lactic Acid AST 64 H ALT 43 Alkaline Phosphatase 171 H Troponin I Tumor Marker AFP Hep A IgM Ab Confirm Hepatitis A Ab Total Hep Bs Antigen Hep Bs Antibody Hep B Core Total Ab Hep C Ab Diagnostic Liver Fibrosis Interp Imaging: CXR--Impression: Left hilar mass. CHEST CT--Left perihilar mass and 1.2 cm spiculated nodule left lower lobe suspicious for malignancy and metastasis 4.0 cm right adrenal mass suspicious for metastasis Extensive hepatic metastases U/S ABD-- 6.6 cm mass right lobe of liver suspicious for neoplasm either primary or metastatic CXR--No significant change. CT ABD/PELVIS-- 1. Numerous metastatic lesions within the liver. Gas locules and confluent hypoattenuation in the posterior right hepatic lobe may be attributed to recent biopsy with hemorrhage. 2. Approximately 3.5 cm right adrenal gland metastasis. A 1.1 cm left lower lobe pulmonary nodule is presumably metastatic. 3. Rectosigmoid irregular annular wall thickening may be attributed to an inflammatory versus infectious colitis, however, neoplasia is not excluded. Please correlate clinically and with colonoscopy after completion of therapy. 4. A 1.5 x 1.5 cm ill-defined pancreatic head lesion may be metastatic or primary. No pancreatic ductal dilatation or biliary ductal dilatation. 5. A 1.6 x 1.5 cm indeterminant lesion in the left renal upper pole may be solid or cyst with proteinaceous contents. Please correlate with targeted left renal sonogram. 6. Small layering right pleural effusion with right lung base subsegmental compressive atelectasis. BRAIN MRI --Negative exam. No discrete abnormality is identified. BONE SCAN-- Normal bone scan HOSPITAL COURSE: Date of Admission:06/12/17 Date of Discharge: 06/18/17 46 year old male with no known medical history, presented with sharp, intermittent, right shoulder/anterior chest pain that radiates to the back, for the past two weeks. Patient underwent chest ct (results above). Patient also underwent chest xray, u/s abd, ct abd/pelvis, brain MRI, and bone scan--results above. Patient found to have metastatic squamous cell carcinoma --poorly differentiated on liver biopsy. Findings discussed with patient by oncology. Patient will follow up for further workup and treatment with chemotherapy outpatient. Minutes to complete discharge: 45 <Humberto Valle - Last Filed: 06/18/17 16:03> Physical Exam: Patient has seen and examined, Patient is aware of his Liver Bx findings squamous cell carcinoma. Case discussed with the oncologist. Patient is given all the information and will follow up with oncology office for further plan and chemotherapy. Vital Signs Temperature 98.0 F 06/18/17 15:08 Pulse Rate 86 06/18/17 15:08 Respiratory Rate 20 06/18/17 15:08 Blood Pressure 144/103 06/18/17 15:08 O2 Sat by Pulse Oximetry (%) 96 06/18/17 09:00 CBCD WBC 20.8 K/mm3 (4.0-10.0) H 06/18/17 06:00 RBC 4.14 M/mm3 (4.00-5.60) 06/18/17 06:00 Hgb 11.7 GM/dL (11.7-16.9) 06/18/17 06:00 Hct 35.3 % (35.4-49) L 06/18/17 06:00 MCV 85.1 fl (80-96) 06/18/17 06:00 MCHC 33.3 g/dl (32.0-35.9) 06/18/17 06:00 RDW 14.4 % (11.9-15.9) 06/18/17 06:00 Plt Count 300 K/MM3 (134-434) 06/18/17 06:00 MPV 9.2 fl (7.5-11.1) 06/18/17 06:00 CMP Sodium 138 mmol/L (136-145) 06/18/17 06:00 Potassium 3.6 mmol/L (3.5-5.1) 06/18/17 06:00 Chloride 96 mmol/L (98-107) L 06/18/17 06:00 Carbon Dioxide 34 mmol/L (21-32) H 06/18/17 06:00 Anion Gap 8 (8-16) 06/18/17 06:00 BUN 6 mg/dL (7-18) L 06/18/17 06:00 Creatinine 0.7 mg/dL (0.7-1.3) 06/18/17 06:00 Creat Clearance w eGFR > 60 (>60) 06/18/17 06:00 Random Glucose 79 mg/dL (74-106) D 06/18/17 06:00 Calcium 7.8 mg/dL (8.5-10.1) L 06/18/17 06:00 Total Bilirubin 0.6 mg/dL (0.2-1.0) 06/18/17 06:00 AST 64 U/L (15-37) H 06/18/17 06:00 ALT 43 U/L (12-78) 06/18/17 06:00 Alkaline Phosphatase 171 U/L (45-117) H 06/18/17 06:00 Total Protein 5.8 g/dl (6.4-8.2) L 06/18/17 06:00 Albumin 1.9 g/dl (3.4-5.0) L 06/18/17 06:00 CARDIAC ENZYMES Troponin I < 0.02 ng/ml (0.00-0.05) 06/12/17 15:00 Home Medications Medication Instructions Recorded Lisinopril [Prinivil] 10 mg PO BID #60 tablet 06/18/17 oxyCODONE HCL [Roxicodone -] 5 mg PO Q6H PRN #12 tablet MDD 4 06/18/17 <Dwain Menezes - Last Filed: 06/18/17 18:24> Discharge Summary Reason For Visit: MALIGNANT NEOPLASM OF LUNG Current Active Problems Adrenal mass (Acute) Liver mass (Acute) Metastatic squamous cell carcinoma (Acute) Pneumonia (Acute) - Home Medications Comprehensive Discharge Medication List: Ambulatory Orders Lisinopril [Prinivil] 10 mg PO BID #60 tablet 06/18/17 oxyCODONE HCL [Roxicodone -] 5 mg PO Q6H PRN #12 tablet MDD 4 06/18/17 <Humberto Valle - Last Filed: 06/18/17 16:03> - Home Medications Comprehensive Discharge Medication List: Ambulatory Orders Lisinopril [Prinivil] 10 mg PO BID #60 tablet 06/18/17 oxyCODONE HCL [Roxicodone -] 5 mg PO Q6H PRN #12 tablet MDD 4 06/18/17 <Dwain Menzees - Last Filed: 06/18/17 18:24> Condition: Stable - Instructions Diet, Activity, Other Instructions: You were in the hospital for right chest pain and found to have a mass. You underwent a biopsy of the liver and were diagnosed with Stage 4 Lung Cancer. Please follow up with your primary care provider within 1 week. A referral has been provided for you. Please follow up with the oncologist, Dr. Sifuentes. You were started on a new medication for your blood pressure. -Take lisinopril 10 mg twice per day -Discuss your blood pressure issues with your primary care provider to adjust your medications accordingly. If you have severe chest pain, shortness of breath, or any new/worsening symptoms please come back to the hospital immediately Referrals: Javier Ventura MD [Staff Physician] - 1 Week Stephie Sifuentes MD [Staff Physician] - 1 Week Disposition: HOME This patient is new to me today: No Emergency Visit: Yes ED Registration Date: 06/12/17 Care time: The patient presented to the Emergency Department on the above date and was hospitalized for further evaluation of their emergent condition. Critical Care patient: No - Discharge Referral Referred to [facility] Med P.C.: No <Humberto Valle - Last Filed: 06/18/17 16:03>
--- NOTE | 2017-06-18 19:20 | PN ---
Progress Note (short form) - Note Progress Note: Patient seen and examined Feels well. Denies any complaints Last Vital Signs Temp Pulse Resp BP Pulse Ox 98.0 F 86 20 144/103 96 06/18/17 15:08 06/18/17 15:08 06/18/17 15:08 06/18/17 15:08 06/18/17 09:00 Cor: RSR, No murmurs, No gallops Lungs: Clear to P&A Abd: Soft, Normal bowel sounds, No organomegaly Ext:No significant edema Abnormal Lab Results 06/16/17 06/18/17 06/18/17 06:00 06:00 06:00 WBC 20.8 H Hct 35.3 L Neutrophils % (Manual) 88.2 H Lymphocytes % (Manual) 2.3 L D Chloride 96 L Carbon Dioxide 34 H BUN 6 L Calcium 7.8 L AST 64 H Alkaline Phosphatase 171 H Total Protein 5.8 L Albumin 1.9 L Hepatitis A Ab Total Positive H A/P 46 y/o patient with metastatic squamous cell cancer, probably lung cancer , liver/adrenal mets discussed diagnosis with patient discussed need for close f/u and plan to get port placement and chemotherapy gave contact nos. to patient
== END 2017-06-18 16:45 | disposition home or self-care (01) | DRG 136 ==
LOC: JER 14:02 → JERBED 22:53 → J2W 06-13 01:17 → J7W 06-14 19:15
PROVIDERS: ADMIT Internal Medicine; ATTEND Internal Medicine
PROC: 0FB13ZX Excision of Right Lobe Liver, Percutaneous Approach, Diagnostic (ICD-10-PCS; principal; 2017-06-15)
DX: C34.90 Malignant neoplasm of unspecified part of unspecified bronchus or lung (principal); J18.9 Pneumonia, unspecified organism; E87.1 Hypo-osmolality and hyponatremia; E87.6 Hypokalemia; E88.09 Other disorders of plasma-protein metabolism, not elsewhere classified; C78.7 Secondary malignant neoplasm of liver and intrahepatic bile duct; D72.829 Elevated white blood cell count, unspecified; F17.210 Nicotine dependence, cigarettes, uncomplicated; J98.11 Atelectasis; R16.0 Hepatomegaly, not elsewhere classified; A41.9 Sepsis, unspecified organism
CPT/HCPCS: 36415; 70553-TC; 71045-TC-FY; 71260-TC; 74177-TC; 76705-TC; 76942-TC; 78306-TC; 80048; 80053; 81003; 81015; 82105; 83605; 83615; 83735; 84100; 84484; 85025; 85610; 85730; 86704; 86706; 86708; 87040; 87086; 87340; 87804; 87899; 88305-TC; 88341-TC; 90670; 90688; 93005; 93010; 99284-25; A9503; G0008; G0009; J0131; J7030